=== PATIENT | female | born 1975 | race Caucasian/White ===

== ENCOUNTER 2017-02-03 00:59 | Outpatient (CLI) | payer OTHER | END 2017-02-03 02:00 | disposition home or self-care (01) | DX: O99.89 Other specified diseases and conditions complicating pregnancy, childbirth and the puerperium (principal); R10.9 Unspecified abdominal pain; Z3A.35 35 weeks gestation of pregnancy ==

== ENCOUNTER 2020-12-13 11:14 | Outpatient (CLI) | payer OTHER | END 2020-12-13 11:15 | disposition critical access hospital (66) | LOC: EMS 11:14 | PROVIDERS: ATTEND Emergency Medicine | DX: R10.9 Unspecified abdominal pain (principal); R19.7 Diarrhea, unspecified | CPT/HCPCS: A0425; A0429 ==

== ENCOUNTER 2020-12-13 11:29 | Inpatient (IN) | payer OTHER ==
[2020-12-13] MEDS ORDERED: SODIUM CHLORIDE 0.9% 1,000 ML IV STA ×2 (11:49→14:02)
[2020-12-13] MEDS ORDERED: ONDANSETRON 4 MG/2 ML VIAL IVP STA (11:49)
[2020-12-13 12:20] LABS: BASOPHILS % (AUTO) 0.8 %; LYMPHOCYTES % (AUTO) 8.2 %; MEAN CORPUSCULAR HEMOGLOBIN 32.9 pg (27.0-31.0); MEAN CORPUSCULAR HGB CONC 34.6 g/dL (32.0-36.0); MEAN CORPUSCULAR VOLUME 95.1 fL (81.0-99.0); MEAN PLATELET VOLUME 8.1 fL (7.9-10.8); MONOCYTES % (AUTO) 25.9 %; NEUTROPHILS % (AUTO) 64.3 %; PLT - PLATELET COUNT 96 10^3/uL (130-450); RED BLOOD COUNT 2.43 10^6/uL (4.20-5.40); RED CELL DISTRIBUTION WIDTH 14.9 % (12.0-15.0); WHITE BLOOD COUNT 2.4 x10^3/uL (4.8-10.8)
[2020-12-13 12:23] LABS: ABNORMAL LYMPHS % (MANUAL) 0 %
[2020-12-13 12:43] LABS: ALBUMIN 2.3 g/dL (3.2-5.5); ALBUMIN/GLOBULIN RATIO 1.4 (1.0-2.2); BILIRUBIN,TOTAL 0.4 mg/dL (0.2-1.0); CREATININE 0.5 mg/dL (0.4-1.0)
[2020-12-13 12:45] LABS: CALCIUM 5.4 mg/dL (8.5-10.3)
[2020-12-13 12:48] LABS: BAND NEUTROPHILS % (MANUAL) 38 %; DIFFERENTIAL COMMENT MANUAL DIFFERENTIAL; LYMPHOCYTES # (MANUAL) 0.2 10^3/uL (1.5-3.5); LYMPHOCYTES % (MANUAL) 10 %; MONOCYTES # (MANUAL) 0.3 10^3/uL (0.0-1.0); PLATELET ESTIMATE, MANUAL DECREASED (<130,000) (NORMAL); PLATELET MORPHOLOGY 1+ LARGE PLATELETS (NORMAL)
[2020-12-13] MEDS ORDERED: ACETAMINOPHEN 325 MG TABLET PO STA (13:41)
[2020-12-13] MEDS ORDERED: POTASSIUM CHLOR 10 MEQ/100 ML 10 MEQ/100 ML BAG IV STA (13:42)
[2020-12-13 14:26] LABS: BILIRUBIN,URINE NEGATIVE (NEGATIVE); GLUCOSE, URINE (UA) NEGATIVE (NEGATIVE); KETONES,URINE (UA) 15 mg/dL (NEGATIVE); LEUKOCYTE ESTERASE, URINE NEGATIVE (NEGATIVE); NITRITE,URINE NEGATIVE (NEGATIVE); OCCULT BLOOD,URINE TRACE-INTA (NEGATIVE); PROTEIN,URINE TRACE mg/dL (NEGATIVE); UROBILINOGEN,URINE 0.2 (NORMAL) E.U./dL (NORMAL)
[2020-12-13 14:28] LABS: CLARITY,URINE CLEAR (CLEAR); HCG UR QUAL NEGATIVE
--- NOTE | 2020-12-13 14:28 | XRAY Report ---
PROCEDURE: Chest 1 View X-Ray INDICATIONS: fever, chemo TECHNIQUE: One view of the chest was acquired. COMPARISON: None. FINDINGS: Surgical changes and devices: Surgical clips noted in the right breast and right axilla. Lungs and pleura: No pleural effusions or pneumothorax. Lungs are clear. Mediastinum: Mediastinal contours appear normal. Heart size is normal. Bones and chest wall: No suspicious bony lesions. Overlying soft tissues appear unremarkable. IMPRESSION: No acute cardiopulmonary disease. Reviewed by: Cheng Morrison MD on 12/13/2020 2:27 PM PST Approved by: Cheng Morrison MD on 12/13/2020 2:27 PM PST Station ID: [id number]
[2020-12-13] MEDS ORDERED: CEFEPIME 2 GM in SODIUM CHLORIDE 0.9% MINIBAG 100 ML IV STA (17:18)
--- NOTE | 2020-12-13 17:24 | ED Physician Documentation ---
History of Present Illness - Stated complaint Stated Complaint: DEHYDRATED - Chief complaint Chief Complaint: Abd Pain - History obtained from History obtained from: Patient, Family - Additonal information Additional information: Pt was brought to the ED with CC of diarrhea since her last chemo treatment, and now fever. PT received second dose of chemo 5 days ago for breast cancer. She has already had a R mastectomy and radiation. She states that the next day, she began to have copious diarrhea, along with nausea and vomiting. This has persisted since, and she was now found to have a fever during triage. Pt denies any other sx. No cough, SOB, or CP. No sore throat--just a dry mouth. No dysuria, but pt states her urine has seemed cloudy. No known exposures to anyone ill. Pt is a dual citizen, and has been receiving her cancer care in [facility] Review of Systems Ten Systems: 10 systems reviewed and negative Constitutional: reports: Fever, Fatigue Eyes: reports: Reviewed and negative Ears: reports: Reviewed and negative Nose: reports: Reviewed and negative. denies: Rhinorrhea / runny nose, Congestion Throat: reports: Reviewed and negative. denies: Sore throat Cardiac: reports: Reviewed and negative Respiratory: reports: Reviewed and negative. 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 - Past Surgical History Past Surgical History: Yes /OVEN TECHNICIAN: Mastectomy - Present Medications Home Medications: Ambulatory Orders Medication Instructions Recorded Confirmed No Known Home Medications 12/14/20 12/14/20 - Allergies Allergies/Adverse Reactions: Allergies Allergy/AdvReac Type Severity Reaction Status Date / Time erythromycin base Allergy Anaphylaxis Verified 12/13/20 14:45 fentanyl Allergy Anaphylaxis Verified 12/13/20 14:45 Latex, Natural Rubber AdvReac Itching Verified 12/13/20 14:45 - Social History Does the pt smoke?: No Smoking Status: Never smoker Does the pt drink ETOH?: No Substance Use and Type: CBD oil / Products PD ED PE NORMAL - Vitals Vital signs reviewed: Yes - General General: Alert and oriented X 3, Well developed/nourished, Other (Pt appears mildly chronically ill and uncomfortable. 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, No motor deficit, No sensory deficit, Normal speech - Psych Psych: Normal mood, Normal affect Results - Vitals Vitals: Vital Signs - 24 hr 12/13/20 12/13/20 12/13/20 11:36 12:00 12:30 Temperature 39.1 C H Heart Rate 130 H 124 H 115 H Respiratory 20 20 18 Rate Blood Pressure 113/66 124/87 H 120/86 H O2 Saturation 100 97 98 12/13/20 12/13/20 12/13/20 13:00 13:30 14:03 Temperature 37.7 C Heart Rate 115 H 132 H Respiratory 20 20 Rate Blood Pressure 122/80 111/75 O2 Saturation 99 100 12/13/20 12/13/20 14:30 17:00 Temperature 38.4 C H 37.7 C Heart Rate 118 H 121 H Respiratory 20 20 Rate Blood Pressure 108/77 103/68 O2 Saturation 99 99 Oxygen O2 Source Room air - Labs Labs: Laboratory Tests 12/13/20 12/13/20 12/13/20 12:11 12:11 12:11 WBC 2.4 L RBC 2.43 L Hgb 8.0 L Hct 23.1 L MCV 95.1 MCH 32.9 H MCHC 34.6 RDW 14.9 Plt Count 96 L MPV 8.1 Neut # (Auto) Not Reportable Lymph # (Auto) Not Reportable [place] # (Auto) Not Reportable Eos # (Auto) Not Reportable Baso # (Auto) Not Reportable Absolute Nucleated RBC Not Reportable Total Counted 100 Band Neuts % (Manual) 38 H Abnorm Lymph % (Manual) 0 Nucleated RBC % Not Reportable Neutrophils # (Manual) 1.8 Lymphocytes # (Manual) 0.2 L Monocytes # (Manual) 0.3 Eosinophils # (Manual) 0.0 Basophils # (Manual) 0.0 Differential Comment MANUAL DIFFERENTIAL Platelet Estimate DECREASED (<130,000) Platelet Morphology 1+ LARGE PLATELETS RBC Morph Micro Appear 1+ MICROCYTOSIS Sodium 139 Potassium 2.2 L* Chloride 112 H Carbon Dioxide 18 L Anion Gap 9.0 BUN 11 Creatinine 0.5 Estimated GFR (MDRD) 134 Glucose 89 Lactic Acid 1.3 Calcium 5.4 L* Total Bilirubin 0.4 AST 13 ALT 12 Alkaline Phosphatase 33 L Total Protein 4.0 L Albumin 2.3 L Globulin 1.7 L Albumin/Globulin Ratio 1.4 Lipase 18 L Urine Color Urine Clarity Urine pH Ur Specific [place] Urine Protein Urine Glucose (UA) Urine Ketones Urine Occult Blood Urine Nitrite Urine Bilirubin Urine Urobilinogen Ur Leukocyte Esterase Ur Microscopic Review Urine Culture Comments Urine HCG, Qual Nasal Adenovirus (PCR) Nasal B. parapertussis DNA (PCR) Nasal Coronavir 229E PCR Nasal Coronavir HKU1 PCR Nasal Coronavir NL63 PCR Nasal Coronavir OC43 PCR Nasal Enterovir/Rhinovir PCR Nasal Influenza B PCR Nasal Influenza A PCR Nasal Parainfluen 1 PCR Nasal Parainfluen 2 PCR Nasal Parainfluen 3 PCR Nasal Parainfluen 4 PCR Nasal RSV (PCR) Nasal B.pertussis DNA PCR Nasal C.pneumoniae (PCR) Kalia Human Metapneumo PCR Nasal M.pneumoniae (PCR) Nasal SARS-CoV-2 (PCR) Stl C. diff Tox B Gene 12/13/20 12/13/20 12/13/20 14:08 14:53 15:45 WBC RBC Hgb Hct MCV MCH MCHC RDW Plt Count MPV Neut # (Auto) Lymph # (Auto) [place] # (Auto) Eos # (Auto) Baso # (Auto) Absolute Nucleated RBC Total Counted Band Neuts % (Manual) Abnorm Lymph % (Manual) Nucleated RBC % Neutrophils # (Manual) Lymphocytes # (Manual) Monocytes # (Manual) Eosinophils # (Manual) Basophils # (Manual) Differential Comment Platelet Estimate Platelet Morphology RBC Morph Micro Appear Sodium Potassium Chloride Carbon Dioxide Anion Gap BUN Creatinine Estimated GFR (MDRD) Glucose Lactic Acid Calcium Total Bilirubin AST ALT Alkaline Phosphatase Total Protein Albumin Globulin Albumin/Globulin Ratio Lipase Urine Color YELLOW Urine Clarity CLEAR Urine pH 6.0 Ur Specific [place] 1.025 Urine Protein TRACE Urine Glucose (UA) NEGATIVE Urine Ketones 15 H Urine Occult Blood TRACE-INTA Urine Nitrite NEGATIVE Urine Bilirubin NEGATIVE Urine Urobilinogen 0.2 (NORMAL) Ur Leukocyte Esterase NEGATIVE Ur Microscopic Review NOT INDICATED Urine Culture Comments NOT INDICATED Urine HCG, Qual NEGATIVE Nasal Adenovirus (PCR) NOT DETECTED Nasal B. parapertussis DNA (PCR) NOT DETECTED Nasal Coronavir 229E PCR NOT DETECTED Nasal Coronavir HKU1 PCR NOT DETECTED Nasal Coronavir NL63 PCR NOT DETECTED Nasal Coronavir OC43 PCR NOT DETECTED Nasal Enterovir/Rhinovir PCR NOT DETECTED Nasal Influenza B PCR NOT DETECTED Nasal Influenza A PCR NOT DETECTED Nasal Parainfluen 1 PCR NOT DETECTED Nasal Parainfluen 2 PCR NOT DETECTED Nasal Parainfluen 3 PCR NOT DETECTED Nasal Parainfluen 4 PCR NOT DETECTED Nasal RSV (PCR) NOT DETECTED Nasal B.pertussis DNA PCR NOT DETECTED Nasal C.pneumoniae (PCR) NOT DETECTED Kalia Human Metapneumo PCR NOT DETECTED Nasal M.pneumoniae (PCR) NOT DETECTED Nasal SARS-CoV-2 (PCR) NOT DETECTED Stl C. diff Tox B Gene NEGATIVE - Rads (name of study) CT abd/pelvis Radiology: Final report received, EMP read indepedently, See rad report (enterocolitis) CXR Radiology: Final report received, EMP read indepedently, See rad report (NAD) PD MEDICAL DECISION MAKING - ED course Complexity details: reviewed results, re-evaluated patient, considered differential, d/w patient, d/w family ED course: Pt was worked up with labs, CXR, UA, viral panel, stool cx/C.diff, and CT abd pelvis. Work-up was unremarkable, except for moderate leukopenia. Lactic acid was normal. Viral panel and stool studies were pending at the time of admission. Pt was tachycardic, and treated with IV fluids, Zofran, Dilaudid, and GI cocktail, as well as Tylenol for her fever, once she could hold it down. HR improved somewhat after all of this. I spoke with her , who had spoken to pt's oncologist in [place]. Oncologist had expressed preference for admission, which is certainly indicated, given the pt's immunocompromised state and fever. I spoke with Dr. Branham, who agreed to admit the pt to his service. Departure - Departure Disposition: 66 [facility] DC/Xfer Clinical Impression: Fever greater than or equal to 39 degrees Celsius, Chemotherapy-induced diarrhea, Dehydration Condition: Serious Discharge Date/Time: 12/13/20 19:25
[2020-12-13] MEDS ORDERED: IOVERSOL 320 100 ML VIAL IVP ONE ×2 (17:44→18:39)
[2020-12-13 17:45] LABS: C. PNEUMONIAE- RESP PCR PANEL NOT DETECTED
[2020-12-13] MEDS ORDERED: HYDROmorphone 1 MG/ML CARPUJECT IVP STA (17:58)
[2020-12-13] MEDS ORDERED: GI COCKTAIL 120 ML BOTTLE PO ONE (17:58)
[2020-12-13] MEDS ORDERED: SODIUM CHLORIDE 0.9% 1,000 ML IV SCH (18:00)
--- NOTE | 2020-12-13 18:18 | CT Report ---
PROCEDURE: Abdomen/Pelvis W INDICATIONS: fever/chemo CONTRAST: IV CONTRAST: Optiray 320 ml: 100 PO CONTRAST: *NO PO CONTRAST TECHNIQUE: After the administration of nonionic IV contrast, 5 mm thick sections acquired from the diaphragms to the symphysis. 5 mm thick coronal and sagittal reformats were acquired. For radiation dose reducti on, the following was used: automated exposure control, adjustment of mA and/or kV according to yanely ent size. COMPARISON: Correlation is made with the accompanying chest radiograph, 12/13/2020 FINDINGS: Image quality: Excellent. ABDOMEN: Lung bases: Lung bases are clear. Heart size is normal. A right mammoplasty implant is partially se en. Solid organs: Liver and spleen are normal in size and enhancement. Gallbladder wall does not appear thickened. Biliary system is non dilated. Pancreas enhances normally. No adrenal nodules. Kidn eys demonstrate normal size and enhancement, without hydronephrosis. Peritoneum and bowel: Generalized wall thickening and hyperenhancement can be seen involving the dis brian small bowel. Liquid stool is seen throughout the colon. There is mild hyperenhancement with mild wall thickening seen involving the colon, particularly the distal transverse colon and the descending colon. No free air is seen. No significant free fluid can be seen. A normal appendix is incidentally noted. Nodes and vessels: No retroperitoneal or mesenteric adenopathy by size criteria. Aorta and inferior vena cava are normal in size. Miscellaneous: No ventral hernias. PELVIS: Genitourinary: Bladder wall thickness is normal. An IUD is seen. The left arm of the IUD appears to minimally protrude through the myometrium, as on series 3 image 68 and on series 6 image 23. Miscellaneous: No inguinal hernias or adenopathy. Bones: There is a sclerotic focus seen involving the left iliac bone, as on series 6 image 33 and on series 3 image 65. No vertebral body compression fractures. IMPRESSION: Abnormal distal small bowel and colon, with an imaging appearance most consistent with e nterocolitis. Please correlate with infectious and inflammatory causes. Ischemia is considered to be much less likely in this patient. An IUD is seen, with the left T-bar apparently minimally protruding through the myometrium. When clin ically appropriate, please consider gynecologic consultation. There is a sclerotic focus involving the left iliac bone. This is felt most likely to be related to a bone island. However, if there is suspicion for sclerotic metastatic disease in this patient with pr imary cancer, please consider a dedicated whole body nuclear medicine bone scan for further evaluatio n. Incidental note is made of: Right mammaplasty implant Reviewed by: Miguel Xiao MD on 12/13/2020 5:16 PM AKST Approved by: Miguel Xiao MD on 12/13/2020 5:16 PM AKST Station ID: [id number]
[2020-12-13] MEDS ORDERED: LIDOCAINE VISCOUS 2% 15 ML UDC MM ONE (19:00)
[2020-12-13] MEDS ORDERED: MAG HYDROX/AL HYDROX/SIMETH 30 ML UDC PO ONE (19:00)
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
[2020-12-13] MEDS: SODIUM CHLORIDE 0.9% 1,000 ML IV SCH (19:22)
[2020-12-13] MEDS ORDERED: CALCIUM GLUCONATE 2,000 MG in SODIUM CHLORIDE 0.9% 100ML 100 ML IV ONE (19:40)
[2020-12-13] MEDS: metroNIDAZOLE 500 MG/100 ML 500 MG/100 ML BAG IV SCH (20:07)
[2020-12-13] MEDS: ACETAMINOPHEN 325 MG TABLET PO PRN (20:38)
[2020-12-13] MEDS: CEFEPIME 2 GM in SODIUM CHLORIDE 0.9% MINIBAG 100 ML IV SCH (21:20)
[2020-12-13] MEDS: POTASSIUM CHLOR 10 MEQ/100 ML 10 MEQ/100 ML BAG IV SCH ×2 (21:46→23:38)
[2020-12-14] MEDS ORDERED: SODIUM CHLORIDE 0.9% 1,000 ML IV SCH (00:10)
[2020-12-14] MEDS: CALCIUM CARBONATE CHEW 500 MG TABLET PO SCH ×2 (01:13→10:07)
[2020-12-14] MEDS: POTASSIUM CHLOR 10 MEQ/100 ML 10 MEQ/100 ML BAG IV SCH ×3 (01:13→22:53)
[2020-12-14] MEDS: ACETAMINOPHEN 325 MG TABLET PO PRN ×4 (01:21→21:24)
[2020-12-14] MEDS: SODIUM CHLORIDE FLUSH 0.9% 10 ML SYRINGE IVP SCH ×3 (02:12→16:12)
[2020-12-14] MEDS: SODIUM CHLORIDE 0.9% 1,000 ML IV SCH ×4 (02:13→18:35)
[2020-12-14] MEDS: ONDANSETRON 4 MG/2 ML VIAL IVP PRN ×2 (02:14→16:37)
[2020-12-14] MEDS: metroNIDAZOLE 500 MG/100 ML 500 MG/100 ML BAG IV SCH ×3 (04:11→19:05)
[2020-12-14 04:34] LABS: BASOPHILS % (AUTO) 1.3 %; HGB - HEMOGLOBIN 10.3 g/dL (12.0-16.0); LYMPHOCYTES % (AUTO) 7.3 %; MEAN CORPUSCULAR HEMOGLOBIN 32.4 pg (27.0-31.0); MEAN CORPUSCULAR HGB CONC 34.3 g/dL (32.0-36.0); MEAN CORPUSCULAR VOLUME 94.3 fL (81.0-99.0); MEAN PLATELET VOLUME 8.7 fL (7.9-10.8); NEUTROPHILS % (AUTO) 76.9 %; PLT - PLATELET COUNT 148 10^3/uL (130-450); RED BLOOD COUNT 3.18 10^6/uL (4.20-5.40); RED CELL DISTRIBUTION WIDTH 15.9 % (12.0-15.0); WHITE BLOOD COUNT 3.7 x10^3/uL (4.8-10.8)
[2020-12-14 04:38] LABS: ABNORMAL LYMPHS % (MANUAL) 0 %
[2020-12-14 04:44] LABS: ALBUMIN 3.1 g/dL (3.2-5.5); ALBUMIN/GLOBULIN RATIO 1.3 (1.0-2.2); ALKALINE PHOSPHATASE 42 IU/L (42-121); ALT ALANINE AMINOTRANSFERASE 18 IU/L (10-60); AST ASPARTATE AMINOTRANSFERASE 17 IU/L (10-42); BILIRUBIN,TOTAL 0.7 mg/dL (0.2-1.0); BUN - BLOOD UREA NITROGEN 11 mg/dL (6-20); CALCIUM 8.2 mg/dL (8.5-10.3); CARBON DIOXIDE - CO2 20 mmol/L (21-32); CHLORIDE 102 mmol/L (101-111); CREATININE 0.7 mg/dL (0.4-1.0); GLUCOSE 123 mg/dL (70-100); TOTAL PROTEIN 5.5 g/dL (6.7-8.2)
[2020-12-14 04:48] LABS: VBG PH 7.468 (7.31-7.41)
[2020-12-14 05:07] LABS: BAND NEUTROPHILS % (MANUAL) 37 %; DIFFERENTIAL COMMENT MANUAL DIFFERENTIAL; LYMPHOCYTES # (MANUAL) 0.4 10^3/uL (1.5-3.5); LYMPHOCYTES % (MANUAL) 12 %; METAMYELOCYTES % (MANUAL) 1 %; MONOCYTES # (MANUAL) 0.3 10^3/uL (0.0-1.0); MYELOCYTES % (MANUAL) 1 %; PLATELET ESTIMATE, MANUAL NORMAL (130-450,000) (NORMAL); RBC MORPHOLOGY (MULTIPLE) NORMAL APPEARANCE (NORMAL)
--- NOTE | 2020-12-14 07:30 | PROVIDER PROGRESS NOTE ---
Subjective - Prog Note Date Prog Note Date: 12/14/20 Prog Note Time: 07:26 - Subjective Pt reports feeling: No change (stool is now green, 6x overnight, urgency, but not gross volume, cramping is getting worse before BM's, feels some reflux in her throat w/ not eating) Objective - Vital Signs/Intake & Output Reviewed Vital Signs: Yes Vital Signs: Vital Signs x48h Temp Pulse Resp BP Pulse Ox 12/14/20 04:08 37.1 C 100 17 102/67 97 12/13/20 23:35 37.4 C 105 H 13 110/62 96 Intake & Output: Intake & Output 12/11/20 12/12/20 12/13/20 12/14/20 23:59 23:59 23:59 23:59 Intake Total 3620.0 791.667 Balance 3620.0 791.667 - Objective General Appearance: positive: No acute distress, Other (nontoxic, but looks tired, had to get up to bathroom during exam this morning) Eyes Bilateral: positive: Normal inspection, PERRL Neck: positive: Nml inspection Respiratory: positive: Chest non-tender, No respiratory distress, Breath sounds nml Cardiovascular: positive: Regular rate & rhythm Abdomen: positive: Tenderness, Rebound. negative: Nml bowel sounds (hypoactive but present, nondistended, tender to gentle palpation LLQ, mid abd) Skin: positive: Warm, Dry, Other (no mottling) Extremities: negative: Pedal edema (palms and soles w/ thickened slightly peeling skin, no open sores (small L ball of foot ~3mm non draining scab unchanged; using stock lotion from floor) Neurologic/Psychiatric: positive: Oriented x3, Mood/affect nml - Lab Results Fish Bones: 12/14/20 04:13 12/14/20 04:13 Other Labs: Lab Results x24hrs 12/14/20 12/14/20 12/14/20 Range/Units 04:13 04:13 04:13 WBC 3.7 L (4.8-10.8) x10^3/uL RBC 3.18 L (4.20-5.40) 10^6/uL Hgb 10.3 L (12.0-16.0) g/dL Hct 30.0 L (37.0-47.0) % MCV 94.3 (81.0-99.0) fL MCH 32.4 H (27.0-31.0) pg MCHC 34.3 (32.0-36.0) g/dL RDW 15.9 H (12.0-15.0) % Plt Count 148 (130-450) 10^3/uL MPV 8.7 (7.9-10.8) fL Neut # (Auto) Not Reportable Lymph # (Auto) Not Reportable [place] # (Auto) Not Reportable Eos # (Auto) Not Reportable Baso # (Auto) Not Reportable Absolute Nucleated RBC Not Reportable Total Counted 100 Band Neuts % (Manual) 37 H (0 - 10) % Abnorm Lymph % (Manual) 0 % Metamyelocytes % 1 H ( - 0) % Myelocytes % 1 H ( - 0) % Nucleated RBC % Not Reportable Neutrophils # (Manual) 2.9 (1.5-6.6) 10^3/uL Lymphocytes # (Manual) 0.4 L (1.5-3.5) 10^3/uL Monocytes # (Manual) 0.3 (0.0-1.0) 10^3/uL Eosinophils # (Manual) 0.0 (0-0.7) 10^3/uL Basophils # (Manual) 0.0 (0-0.1) 10^3/uL Differential Comment MANUAL DIFFERENTIAL Platelet Estimate NORMAL (130-450,000) (NORMAL) Platelet Morphology (NORMAL) RBC Morph Micro Appear NORMAL APPEARANCE (NORMAL) VBG pH 7.468 H (7.31-7.41) Ionized Calcium 1.09 L YES (1.15-1.33) mmol/L Sodium 131 L (135-145) mmol/L Potassium 4.0 (3.5-5.0) mmol/L Chloride 102 (101-111) mmol/L Carbon Dioxide 20 L (21-32) mmol/L Anion Gap 9.0 (6-13) BUN 11 (6-20) mg/dL Creatinine 0.7 (0.4-1.0) mg/dL Estimated GFR (MDRD) 91 (>89) Glucose 123 H (70-100) mg/dL Lactic Acid (0.5-2.2) mmol/L Calcium 8.2 L (8.5-10.3) mg/dL Total Bilirubin 0.7 (0.2-1.0) mg/dL AST 17 (10-42) IU/L ALT 18 (10-60) IU/L Alkaline Phosphatase 42 (42-121) IU/L Total Protein 5.5 L (6.7-8.2) g/dL Albumin 3.1 L (3.2-5.5) g/dL Globulin 2.4 (2.1-4.2) g/dL Albumin/Globulin Ratio 1.3 (1.0-2.2) Lipase (22-51) U/L Urine Color Urine Clarity (CLEAR) Urine pH (5.0-7.5) PH Ur Specific [place] (1.002-1.030) Urine Protein (NEGATIVE) mg/dL Urine Glucose (UA) (NEGATIVE) mg/dL Urine Ketones (NEGATIVE) mg/dL Urine Occult Blood (NEGATIVE) Urine Nitrite (NEGATIVE) Urine Bilirubin (NEGATIVE) Urine Urobilinogen (NORMAL) E.U./dL Ur Leukocyte Esterase (NEGATIVE) Ur Microscopic Review Urine Culture Comments Urine HCG, Qual Nasal Adenovirus (PCR) Nasal B. parapertussis DNA (PCR) Nasal Coronavir 229E PCR Nasal Coronavir HKU1 PCR Nasal Coronavir NL63 PCR Nasal Coronavir OC43 PCR Nasal Enterovir/Rhinovir PCR Nasal Influenza B PCR Nasal Influenza A PCR Nasal Parainfluen 1 PCR Nasal Parainfluen 2 PCR Nasal Parainfluen 3 PCR Nasal Parainfluen 4 PCR Nasal RSV (PCR) Nasal B.pertussis DNA PCR Nasal C.pneumoniae (PCR) [place] Human Metapneumo PCR Nasal M.pneumoniae (PCR) Nasal SARS-CoV-2 (PCR) Stl C. diff Tox B Gene (NEGATIVE) 12/13/20 12/13/20 12/13/20 Range/Units 15:45 14:53 14:08 WBC (4.8-10.8) x10^3/uL RBC (4.20-5.40) 10^6/uL Hgb (12.0-16.0) g/dL Hct (37.0-47.0) % MCV (81.0-99.0) fL MCH (27.0-31.0) pg MCHC (32.0-36.0) g/dL RDW (12.0-15.0) % Plt Count (130-450) 10^3/uL MPV (7.9-10.8) fL Neut # (Auto) Lymph # (Auto) [place] # (Auto) Eos # (Auto) Baso # (Auto) Absolute Nucleated RBC Total Counted Band Neuts % (Manual) (0 - 10) % Abnorm Lymph % (Manual) % Metamyelocytes % ( - 0) % Myelocytes % ( - 0) % Nucleated RBC % Neutrophils # (Manual) (1.5-6.6) 10^3/uL Lymphocytes # (Manual) (1.5-3.5) 10^3/uL Monocytes # (Manual) (0.0-1.0) 10^3/uL Eosinophils # (Manual) (0-0.7) 10^3/uL Basophils # (Manual) (0-0.1) 10^3/uL Differential Comment Platelet Estimate (NORMAL) Platelet Morphology (NORMAL) RBC Morph Micro Appear (NORMAL) VBG pH (7.31-7.41) Ionized Calcium (1.15-1.33) mmol/L Sodium (135-145) mmol/L Potassium (3.5-5.0) mmol/L Chloride (101-111) mmol/L Carbon Dioxide (21-32) mmol/L Anion Gap (6-13) BUN (6-20) mg/dL Creatinine (0.4-1.0) mg/dL Estimated GFR (MDRD) (>89) Glucose (70-100) mg/dL Lactic Acid (0.5-2.2) mmol/L Calcium (8.5-10.3) mg/dL Total Bilirubin (0.2-1.0) mg/dL AST (10-42) IU/L ALT (10-60) IU/L Alkaline Phosphatase (42-121) IU/L Total Protein (6.7-8.2) g/dL Albumin (3.2-5.5) g/dL Globulin (2.1-4.2) g/dL Albumin/Globulin Ratio (1.0-2.2) Lipase (22-51) U/L Urine Color YELLOW Urine Clarity CLEAR (CLEAR) Urine pH 6.0 (5.0-7.5) PH Ur Specific [place] 1.025 (1.002-1.030) Urine Protein TRACE (NEGATIVE) mg/dL Urine Glucose (UA) NEGATIVE (NEGATIVE) mg/dL Urine Ketones 15 H (NEGATIVE) mg/dL Urine Occult Blood TRACE-INTA (NEGATIVE) Urine Nitrite NEGATIVE (NEGATIVE) Urine Bilirubin NEGATIVE (NEGATIVE) Urine Urobilinogen 0.2 (NORMAL) (NORMAL) E.U./dL Ur Leukocyte Esterase NEGATIVE (NEGATIVE) Ur Microscopic Review NOT INDICATED Urine Culture Comments NOT INDICATED Urine HCG, Qual NEGATIVE Nasal Adenovirus (PCR) NOT DETECTED Nasal B. parapertussis DNA (PCR) NOT DETECTED Nasal Coronavir 229E PCR NOT DETECTED Nasal Coronavir HKU1 PCR NOT DETECTED Nasal Coronavir NL63 PCR NOT DETECTED Nasal Coronavir OC43 PCR NOT DETECTED Nasal Enterovir/Rhinovir PCR NOT DETECTED Nasal Influenza B PCR NOT DETECTED Nasal Influenza A PCR NOT DETECTED Nasal Parainfluen 1 PCR NOT DETECTED Nasal Parainfluen 2 PCR NOT DETECTED Nasal Parainfluen 3 PCR NOT DETECTED Nasal Parainfluen 4 PCR NOT DETECTED Nasal RSV (PCR) NOT DETECTED Nasal B.pertussis DNA PCR NOT DETECTED Nasal C.pneumoniae (PCR) NOT DETECTED [place] Human Metapneumo PCR NOT DETECTED Nasal M.pneumoniae (PCR) NOT DETECTED Nasal SARS-CoV-2 (PCR) NOT DETECTED Stl C. diff Tox B Gene NEGATIVE (NEGATIVE) 12/13/20 12/13/20 12/13/20 Range/Units 12:11 12:11 12:11 WBC 2.4 L (4.8-10.8) x10^3/uL RBC 2.43 L (4.20-5.40) 10^6/uL Hgb 8.0 L (12.0-16.0) g/dL Hct 23.1 L (37.0-47.0) % MCV 95.1 (81.0-99.0) fL MCH 32.9 H (27.0-31.0) pg MCHC 34.6 (32.0-36.0) g/dL RDW 14.9 (12.0-15.0) % Plt Count 96 L (130-450) 10^3/uL MPV 8.1 (7.9-10.8) fL Neut # (Auto) Not Reportable Lymph # (Auto) Not Reportable [place] # (Auto) Not Reportable Eos # (Auto) Not Reportable Baso # (Auto) Not Reportable Absolute Nucleated RBC Not Reportable Total Counted 100 Band Neuts % (Manual) 38 H (0 - 10) % Abnorm Lymph % (Manual) 0 % Metamyelocytes % ( - 0) % Myelocytes % ( - 0) % Nucleated RBC % Not Reportable Neutrophils # (Manual) 1.8 (1.5-6.6) 10^3/uL Lymphocytes # (Manual) 0.2 L (1.5-3.5) 10^3/uL Monocytes # (Manual) 0.3 (0.0-1.0) 10^3/uL Eosinophils # (Manual) 0.0 (0-0.7) 10^3/uL Basophils # (Manual) 0.0 (0-0.1) 10^3/uL Differential Comment MANUAL DIFFERENTIAL Platelet Estimate DECREASED (<130,000) (NORMAL) Platelet Morphology 1+ LARGE PLATELETS (NORMAL) RBC Morph Micro Appear 1+ MICROCYTOSIS (NORMAL) VBG pH (7.31-7.41) Ionized Calcium (1.15-1.33) mmol/L Sodium 139 (135-145) mmol/L Potassium 2.2 L* (3.5-5.0) mmol/L Chloride 112 H (101-111) mmol/L Carbon Dioxide 18 L (21-32) mmol/L Anion Gap 9.0 (6-13) BUN 11 (6-20) mg/dL Creatinine 0.5 (0.4-1.0) mg/dL Estimated GFR (MDRD) 134 (>89) Glucose 89 (70-100) mg/dL Lactic Acid 1.3 (0.5-2.2) mmol/L Calcium 5.4 L* (8.5-10.3) mg/dL Total Bilirubin 0.4 (0.2-1.0) mg/dL AST 13 (10-42) IU/L ALT 12 (10-60) IU/L Alkaline Phosphatase 33 L (42-121) IU/L Total Protein 4.0 L (6.7-8.2) g/dL Albumin 2.3 L (3.2-5.5) g/dL Globulin 1.7 L (2.1-4.2) g/dL Albumin/Globulin Ratio 1.4 (1.0-2.2) Lipase 18 L (22-51) U/L Urine Color Urine Clarity (CLEAR) Urine pH (5.0-7.5) PH Ur Specific [place] (1.002-1.030) Urine Protein (NEGATIVE) mg/dL Urine Glucose (UA) (NEGATIVE) mg/dL Urine Ketones (NEGATIVE) mg/dL Urine Occult Blood (NEGATIVE) Urine Nitrite (NEGATIVE) Urine Bilirubin (NEGATIVE) Urine Urobilinogen (NORMAL) E.U./dL Ur Leukocyte Esterase (NEGATIVE) Ur Microscopic Review Urine Culture Comments Urine HCG, Qual Nasal Adenovirus (PCR) Nasal B. parapertussis DNA (PCR) Nasal Coronavir 229E PCR Nasal Coronavir HKU1 PCR Nasal Coronavir NL63 PCR Nasal Coronavir OC43 PCR Nasal Enterovir/Rhinovir PCR Nasal Influenza B PCR Nasal Influenza A PCR Nasal Parainfluen 1 PCR Nasal Parainfluen 2 PCR Nasal Parainfluen 3 PCR Nasal Parainfluen 4 PCR Nasal RSV (PCR) Nasal B.pertussis DNA PCR Nasal C.pneumoniae (PCR) [place] Human Metapneumo PCR Nasal M.pneumoniae (PCR) Nasal SARS-CoV-2 (PCR) Stl C. diff Tox B Gene (NEGATIVE) - Diagnostic Imaging Diagnostic Imaging Results: positive: Final report reviewed Diagnostic Imaging Comments: CT abdomen from 12/13: Abnormal distal smallbowel and colon, most c/w enterocolitis, unlikely ischemic cause in this pt per radiologist read Detail; generalized wall thickening and hyperenhancement can be involving distal small bowel , liquid stool throught colon. Mild hyperenhancement w/ mild wall thickening seen in coong forrest distal tansverse and descending. No free air Sepsis Event Note (H) - Evaluation Current Stage of Sepsis: Sepsis Possible source of Sepsis: positive: GI tract/intra-abdominal Assessment/Plan - Problem List (1) Sepsis Impression: (1) Sepsis Conclusion/Plan: tachycardia to 130's on admit w/ fever 38% bands, enterocolitis on CT (ileocecal, transverse and descending colon (lactate not over 2 on presentation) After 4L IVF HR improved to ~ 100, SBP ~ 100, nontoxic appearing IVF rate was reduced to 100 last pm, after 2L in ED and 1L at 250 Hr still ~ 100 (otherwise young healthy woman) will increase to 150, x 1 L, then 125 til HR ~ 80's Still significant bandemia, (37% blood cx no report stool cultures (sendout) pending, Cdif NEG continue cefepime and flagyl 2) enterocolitis related to chemo, infectious vs inflammatory from chemo (but w/fever treating as infectous) immunocompromised, but not neutropenic, ANC well over 500 Day 2 Cefepime /Flagyl awaiting stool cultures w/ Cdif negative will start conservative immodium surgical consult , so aware of patient if any significant worsening (d/w'd Dr Salomon) discussed w/ Dr Keri Thakur oncology [phone] VTE prophylaxis ; lovenox 40/d (2) Chemotherapy-induced diarrhea Conclusion/Plan: well known complication of capecitabine and had w/ first cycle BUT now with, fever enterocolitis on CT, 37% bands Day 2 Cefepime, flagyl Cdif neg as above stool pathogens pending adding bulking agent for now Contacted her oncologist iDr Keri Thakur [phone] if there are specific recommendations (per literature, 1 study of bid 40 cholestyramine, octreotide (but older study) Per Dr Thakur ; if no response to immodium, can consider octreotide 100 mcg tid sq and can increase (need to double chek dose) Will start conservative immodium tid dicycomine trial for cramping (pt reports very sensitive to opioids, didnt like effectof 2 mg morphine yesterday, leery about opiate,; just took tylenol, will consider tramadol -IV famotidine for c/o reflux -pt wants to stay clears for now Nutrition consult (at baseline is well nourished; poor PO only since this week) Addendum re: famotidine;still c/o reflux, notes shes on otc ppi at home. Stop H2B, start Protonix, also can increase CaCo3/tums; "eats lots of tums" Per pharmacy; max 8 gram/ day (3) Intravascular volume depletion Conclusion/Plan: marked/ due to GI losses, poor po, involuntary loss; fever continue aggressive volume repletion as above and continuing today strict I/O, measure stools (werent measured overnight) 4) Pancytopenia labs today post volume resuscitation dont quite make sense H/H INCREASED post 4L, plts increased (may be reactive thrombocytosis), WBC 2.4> 3.7 recheck in am (4) Metabolic acidosis with normal anion gap and bicarbonate losses Conclusion/Plan: related to diarrhea slowly improving bicarb 18>20 (5) Hypocalcemia ? asymptomatic 5.4 on admit, (w / albumin 4.0) got one dose 2g ca gluconate 8.2 today (?) ? spurious yesterday will recheck in am, no symptoms suggestive of significant hypocalcemia will check mag,>> 1.9 phos>> 2.2 w/ several days GI volume loss 6) hand /foot syndrome post chemo add emolient (eucerin) prn
[2020-12-14] MEDS ORDERED: PSYLLIUM PACKET PO SCH (08:00)
[2020-12-14 09:21] LABS: MAGNESIUM 1.9 mg/dL (1.7-2.8); PHOSPHORUS 2.2 mg/dL (2.5-4.6)
[2020-12-14] MEDS: ENOXAPARIN 40 MG/0.4 ML SYRINGE SUBQ SCH (10:07)
[2020-12-14] MEDS: LOPERAMIDE 2 MG CAPSULE PO SCH ×2 (10:07→13:05)
[2020-12-14] MEDS: PSYLLIUM PACKET PO SCH ×2 (10:09→21:24)
[2020-12-14] MEDS: CEFEPIME 2 GM in SODIUM CHLORIDE 0.9% MINIBAG 100 ML IV SCH ×2 (10:10→21:24)
--- NOTE | 2020-12-14 10:40 | PHARMACY PROGRESS NOTE ---
- Best Possible Medication History Admit Date and Time: 12/13/20 1726 Processed by: Pharmacy Medication History completed: Yes Patient Interview: Completed Secondary Source(s): Physician records, Pharmacy records, Insurance records (PATIENT INTERVIEWED BY PSYCHOMETRIC EXAMINER. PATIENT REPORTS SHE DOES NOT TAKE HOME MEDICATIONS, RECEIVING CHEMO OUT PATIENT ) As the person ultimately responsible for medication therapy, providers are able to order a medication from an existing home medication list in [facility] via the "Reconcile Routine" prior to Confirmation of that medication by direct support specialist. Such practice is discouraged except when the physician, in their clinical judgment, deems that a medical need exists for a medication without regard to previous use.
[2020-12-14] MEDS ORDERED: EMOLLIENT CREAM 57 GM TUBE TOP PRN (11:00)
[2020-12-14] MEDS: DICYCLOMINE 10 MG CAPSULE PO SCH ×2 (11:25→21:24)
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
[2020-12-14] MEDS: LOPERAMIDE 2 MG CAPSULE PO PRN ×2 (16:29→19:06)
[2020-12-14] MEDS: SODIUM CHLORIDE FLUSH 0.9% 10 ML SYRINGE IVP PRN (16:37)
[2020-12-14] MEDS ORDERED: CALCIUM CARBONATE CHEW 500 MG TABLET PO PRN (18:45)
[2020-12-14] MEDS ORDERED: PANTOPRAZOLE 40 MG TABLET PO SCH (19:00)
[2020-12-14] MEDS: CALCIUM CARBONATE CHEW 500 MG TABLET PO PRN (19:06)
[2020-12-14] MEDS ORDERED: FAMOTIDINE 20 MG/2 ML VIAL IVP SCH (21:00)
[2020-12-14] MEDS: FAMOTIDINE 20 MG TABLET PO SCH (21:28)
[2020-12-15] MEDS: POTASSIUM CHLOR 10 MEQ/100 ML 10 MEQ/100 ML BAG IV SCH ×3 (00:24→02:51)
[2020-12-15] MEDS: SODIUM CHLORIDE FLUSH 0.9% 10 ML SYRINGE IVP SCH ×3 (00:59→16:56)
[2020-12-15] MEDS: ONDANSETRON 4 MG/2 ML VIAL IVP PRN ×3 (01:30→19:52)
[2020-12-15] MEDS: SODIUM CHLORIDE 0.9% 1,000 ML IV SCH (02:51)
[2020-12-15] MEDS: metroNIDAZOLE 500 MG/100 ML 500 MG/100 ML BAG IV SCH (04:11)
[2020-12-15] MEDS: DICYCLOMINE 10 MG CAPSULE PO SCH ×3 (06:21→22:10)
[2020-12-15] MEDS: NS W/20 MEQ KCL 1,000 ML IV SCH ×2 (06:44→19:22)
[2020-12-15] MEDS ORDERED: traMADol 50 MG TABLET PO PRN (07:13)
[2020-12-15 07:52] LABS: BASOPHILS % (AUTO) 1.6 %; EOSINOPHILS % (AUTO) 5.2 %; HGB - HEMOGLOBIN 9.2 g/dL (12.0-16.0); LYMPHOCYTES % (AUTO) 18.1 %; MEAN CORPUSCULAR HGB CONC 35.2 g/dL (32.0-36.0); MEAN CORPUSCULAR VOLUME 93.5 fL (81.0-99.0); MEAN PLATELET VOLUME 8.9 fL (7.9-10.8); MONOCYTES % (AUTO) 37.1 %; NEUTROPHILS % (AUTO) 37.4 %; PLT - PLATELET COUNT 144 10^3/uL (130-450); RED BLOOD COUNT 2.79 10^6/uL (4.20-5.40); RED CELL DISTRIBUTION WIDTH 16.3 % (12.0-15.0); WHITE BLOOD COUNT 3.1 x10^3/uL (4.8-10.8)
[2020-12-15 07:55] LABS: ABNORMAL LYMPHS % (MANUAL) 0 %
[2020-12-15 07:58] LABS: ALBUMIN 2.9 g/dL (3.2-5.5); ALBUMIN/GLOBULIN RATIO 1.5 (1.0-2.2); ALKALINE PHOSPHATASE 36 IU/L (42-121); ALT ALANINE AMINOTRANSFERASE 15 IU/L (10-60); AST ASPARTATE AMINOTRANSFERASE 12 IU/L (10-42); BILIRUBIN,TOTAL 0.7 mg/dL (0.2-1.0); BUN - BLOOD UREA NITROGEN 9 mg/dL (6-20); CALCIUM 7.9 mg/dL (8.5-10.3); CARBON DIOXIDE - CO2 18 mmol/L (21-32); CHLORIDE 109 mmol/L (101-111); CREATININE 0.8 mg/dL (0.4-1.0); GLUCOSE 107 mg/dL (70-100); TOTAL PROTEIN 4.8 g/dL (6.7-8.2)
--- NOTE | 2020-12-15 08:11 | PROVIDER PROGRESS NOTE ---
Subjective - Prog Note Date Prog Note Date: 12/15/20 Prog Note Time: 08:06 - Subjective Subjective: reports hx of imodium giving her heart burn, not taking, diarrhea the slightest bit less watery, diffuse abdominal tenderness, feels gassy (takes gas-x "all the time" and reminded her yesterday that she takes both otc PPI and pepcid at home (along with often taking tums). Does not want any opiates, andre did help cramping somewhat yesterda, interested in trying low dose tramadol (reports v. sensitive to any medications). She was able to sit on toilet JUST to urinate w/o also having diarrhea at the same time which is improved. Palm/sole e pidermal thickening peeling has hands feeling "clumsy" , reports the eucerin is helping. feels "crabby" seen again early afternoon, feeling a little better. loose BM at 7am 300 cc, and ~200 cc greenish stool ~ 2p, Is taking immodium now and lomotil. Wrinkles nose at the metamucil but indicates she'll try to take it . Abdominal tenderness improved w/ light palpation (till present but less tender) Current Medications - Current Medications Current Medications: Active Medications Acetaminophen (Acetaminophen 325 Mg Tablet) 650 mg PO Q4HR PRN PRN Reason: Pain or Fever > 38C (100.4F) Last Admin: 12/14/20 21:24 Dose: 650 mg Documented by: Calcium Carbonate/Glycine (Calcium Carbonate Chew 500 Mg Tablet) 500 mg PO Q2H PRN PRN Reason: Heartburn Last Admin: 12/14/20 19:06 Dose: 500 mg Documented by: Dicyclomine HCl (Dicyclomine 10 Mg Capsule) 10 mg PO TID [facility] Last Admin: 12/15/20 06:21 Dose: 10 mg Documented by: Diphenoxylate HCl/Atropine (Diphenox/Atropine 2.5/0.025 Mg Tablet) 1 tab PO TID [facility] Enoxaparin Sodium (Enoxaparin 40 Mg/0.4 Ml Syringe) 40 mg SUBQ DAILY [facility] Last Admin: 12/14/20 10:07 Dose: 40 mg Documented by: Famotidine (Famotidine 20 Mg Tablet) 20 mg PO BID [facility] Last Admin: 12/14/20 21:28 Dose: 20 mg Documented by: Cefepime HCl 2 gm/ Sodium (Chloride) 100 mls @ 200 mls/hr IV BID [facility] Last Infusion: 12/14/20 21:54 Dose: Infused Documented by: Metronidazole (Flagyl 500 Mg/100 Ml) 500 mg in 100 mls @ 100 mls/hr IV Q8H [facility] Last Infusion: 12/15/20 05:11 Dose: Infused Documented by: Potassium Chloride/Sodium Chloride (Normal Saline 0.9% W/20 Meq Kcl) 1,000 mls @ 100 mls/hr IV .Q10H [facility] Last Admin: 12/15/20 06:44 Dose: 100 mls/hr Documented by: Loperamide HCl (Loperamide 2 Mg Capsule) 2 mg PO Q2H PRN PRN Reason: Diarrhea Last Admin: 12/14/20 19:06 Dose: 2 mg Documented by: Multi-Ingredient Ointment (Emollient Cream 57 Gm Tube) 1 applic TOP BID PRN PRN Reason: Dry Skin Ondansetron HCl (Ondansetron 4 Mg/2 Ml Vial) 4 mg IVP Q4HR PRN PRN Reason: Nausea / Vomiting Last Admin: 12/15/20 01:30 Dose: 4 mg Documented by: Psyllium Hydrophilic Mucilloid (Psyllium Packet) 1 packet PO BID [facility] Last Admin: 12/14/20 21:24 Dose: Not Given Documented by: Simethicone (Simethicone Chew 80 Mg Tablet) 80 mg PO TID PRN PRN Reason: Gas Sodium Chloride (Sodium Chloride Flush 0.9% 10 Ml Syringe) 10 ml IVP PRN PRN PRN Reason: NEEDED PER PROVIDER ORDERS Last Admin: 12/14/20 16:37 Dose: 10 ml Documented by: Sodium Chloride (Sodium Chloride Flush 0.9% 10 Ml Syringe) 10 ml IVP 0100,0900,1700 [facility] Last Admin: 12/15/20 00:59 Dose: Not Given Documented by: Tramadol HCl (Tramadol 50 Mg Tablet) 25 mg PO Q4HR PRN PRN Reason: PAIN No Known Home Medications 12/14/20 Objective - Vital Signs/Intake & Output Reviewed Vital Signs: Yes Vital Signs: Vital Signs x48h Temp Pulse Resp BP Pulse Ox 12/15/20 05:00 36.6 C 80 13 100/66 98 12/15/20 00:26 36.8 C 85 14 108/65 97 Intake & Output: Intake & Output 12/12/20 12/13/20 12/14/20 12/15/20 23:59 23:59 23:59 23:59 Intake Total 3620.0 3290.000 2475.417 Output Total 1050 355 Balance 3620.0 2240.000 2120.417 - Objective General Appearance: positive: Other (sitting up in bed, nontoxic, but tired, tried some crackers , eating popsicle) Eyes Bilateral: positive: Normal inspection Respiratory: positive: Chest non-tender, No respiratory distress, Breath sounds nml Cardiovascular: positive: Regular rate & rhythm (HR ~ 80), No murmur Abdomen: positive: Other (very slightly distended but soft, + BS, diffusely tender, no RBT, no guarding) Skin: positive: Warm, Dry, Other (skin thickening soles, palms, slight peeling, no weeping, only open area is scab under 2nd MTP Left. no surrounding erythema, drainage, able to ambulate.) Extremities: negative: Pedal edema - Lab Results Fish Bones: 12/15/20 07:40 12/15/20 07:40 Other Labs: Lab Results x24hrs 12/15/20 12/15/20 12/14/20 Range/Units 07:40 07:40 21:35 WBC 3.1 L (4.8-10.8) x10^3/uL RBC 2.79 L (4.20-5.40) 10^6/uL Hgb 9.2 L (12.0-16.0) g/dL Hct 26.1 L (37.0-47.0) % MCV 93.5 (81.0-99.0) fL MCH 33.0 H (27.0-31.0) pg MCHC 35.2 (32.0-36.0) g/dL RDW 16.3 H (12.0-15.0) % Plt Count 144 (130-450) 10^3/uL MPV 8.9 (7.9-10.8) fL Sodium 137 (135-145) mmol/L Potassium 3.4 L 3.1 L (3.5-5.0) mmol/L Chloride 109 (101-111) mmol/L Carbon Dioxide 18 L (21-32) mmol/L Anion Gap 10.0 (6-13) BUN 9 (6-20) mg/dL Creatinine 0.8 (0.4-1.0) mg/dL Estimated GFR (MDRD) 78 L (>89) Glucose 107 H (70-100) mg/dL Calcium 7.9 L (8.5-10.3) mg/dL Phosphorus (2.5-4.6) mg/dL Magnesium (1.7-2.8) mg/dL Total Bilirubin 0.7 (0.2-1.0) mg/dL AST 12 (10-42) IU/L ALT 15 (10-60) IU/L Alkaline Phosphatase 36 L (42-121) IU/L Total Protein 4.8 L (6.7-8.2) g/dL Albumin 2.9 L (3.2-5.5) g/dL Globulin 1.9 L (2.1-4.2) g/dL Albumin/Globulin Ratio 1.5 (1.0-2.2) 12/14/20 Range/Units 04:13 WBC (4.8-10.8) x10^3/uL RBC (4.20-5.40) 10^6/uL Hgb (12.0-16.0) g/dL Hct (37.0-47.0) % MCV (81.0-99.0) fL MCH (27.0-31.0) pg MCHC (32.0-36.0) g/dL RDW (12.0-15.0) % Plt Count (130-450) 10^3/uL MPV (7.9-10.8) fL Sodium (135-145) mmol/L Potassium (3.5-5.0) mmol/L Chloride (101-111) mmol/L Carbon Dioxide (21-32) mmol/L Anion Gap (6-13) BUN (6-20) mg/dL Creatinine (0.4-1.0) mg/dL Estimated GFR (MDRD) (>89) Glucose (70-100) mg/dL Calcium (8.5-10.3) mg/dL Phosphorus 2.2 L (2.5-4.6) mg/dL Magnesium 1.9 (1.7-2.8) mg/dL Total Bilirubin (0.2-1.0) mg/dL AST (10-42) IU/L ALT (10-60) IU/L Alkaline Phosphatase (42-121) IU/L Total Protein (6.7-8.2) g/dL Albumin (3.2-5.5) g/dL Globulin (2.1-4.2) g/dL Albumin/Globulin Ratio (1.0-2.2) Sepsis Event Note (H) - Evaluation Current Stage of Sepsis: Sepsis Possible source of Sepsis: positive: GI tract/intra-abdominal - Sepsis Criteria Sepsis Criteria: Recorded Temperature greater than 38.3C or Less than 36C, Recorded Heart Rate greater than 90 bpm, WBC count greater than 10% bands, WBC c ount greater than 12,000 or less than 4000 Assessment/Plan - Problem List (1) Sepsis Impression: (1) Sepsis Conclusion/Plan: Resolved; bandemia markedly declined (38%>37% > 6% today) afebrile yesterday, tachycardia resolved s/ HR ~ 80, (still needed volume resuscitation early 12/14) continuing NS at reduced rate w/ K for GI lossses blood cultures negative , 12/14 tachycardia to 130's on admit w/ fever 38% bands, enterocolitis on CT (ileocecal, transverse and descending colon (lactate not over 2 on presentation) After 4L IVF HR improved to ~ 100, SBP ~ 100, nontoxic appearing IVF rate was reduced to 100 last pm, after 2L in ED and 1L at 250 Hr still ~ 100 (otherwise young healthy woman) will increase to 150, x 1 L, then 125 til HR ~ 80's Still significant bandemia, (37% blood cx no report stool cultures (sendout) pending, Cdif NEG Day 3 Cefepime/Flagyl; but will change to unasyn in case flagyl contributing to her GI symptoms see #3 2) enterocolitis and chemotherapy- induced diarrhea Severe diarrhea known S/E of capecitabine, but treating enterocolitis (ileocecal, distal transverse colon, descending on CT) as infectious given sepsis, bandemia on admit/immunocompromised, but not neutropenic Non acute abdomen/ diffuse tenderness c/w inflammation (and much improved bandemia as per #1) Change Cefepime/Flagyl to Unasyn (day 3 ABX) due to ? GI side effects from flagyl cdif neg Stool cultures still pending but w/ improved bandemia, ABX, continuing w/ antidiarrheals for watery stool Not tolerating imodium w/ subjective>>heartburn; Start lomotil (Octreotide is option 100mcg tid sq, but since barely took imodium yesterday eval lomotil) Continue bulking agent / metamucil not agreeing w/ her yesterday but hopefully can resume today prn dicyclomine for cramping (reported+ relief yesterday) adding simethicone trial for c/o gassiness trial of tramadol (wanted just tylenol yesterday, reports high sensitivity to opiate analgesic/leery of many analgesics Advancing diet / as tolerated (and she today likes idea of some solid) Nutrition following, José added zinc Appreciate Dr. Stinson consult Dr Keri Thakur /[place] [facility] [phone] d/w'd her 12/14, 12/15 VTE prophylaxis ; lovenox 40/d 3) GAstroesophageal Reflux H2B AND PPI (reports takes at home, and "eats like candy" tums at home and Gas-x Changing cefepime/flagyl to unasyn in case flagyl>>adding to GI symptoms taking PO at least a bit today (4) Intravascular volume depletion Conclusion/Plan: due to GI losses, hemodynamically stable now ~650 stool 12/14, 335 cc since Midnight I/O ~ 2L + yesterday (12/13 I/O incomplete) reduced NS to 100cc/hr w/ K, continue i/o, antidiarrheals and adjust rate as needed 5) Pancytopenia improved mild anemia (and hemodilute) no signs of bleeding, Plts stable/ improved 96K??148K>>144K) WBC low/stable post chemo 2.4> 3.7> 3.1 ; ANC a little over 1200 ( 1100 neutrophils + 6% bands) (6) Metabolic acidosis with normal anion gap and bicarbonate losses Conclusion/Plan: related to diarrhea stable/ continue manage diarrhea as above (7) Electrolyte imbalance, Mild hypokalemia, hyponatremia, hypophosphatemia Hypocalcemia r/t GI losses Hypocalcemia resolved (7.9 today corrects w/ Alb 2.9) ? spurious CA value on admit? 5.4 w/ alb 2.3; did get 2g Ca gluconate Mild hypoNa (131 yesterday ; resolved 137 today Mild hypokalemia K 4.0 12/14 (3.1 2 pm; 3.4 after 40 meq IV) Adding K to IVF mild hypophosphatemia; patient agreeable to trying neutraphos in juice to try to spare IV, otherwise, Kphos Mag ok 8) hand /foot syndrome post chemo eucerin prn 9) Left iliac sclerotic lesion incidentally noted on CT abd/pelvis; no c orresponding pain, did not communicate this to patient let Dr Thakur know on d/c incase need additonal imaging ; e.g. PET Also outpatient [employer] f/u re: IUD placement ? on CT thru [facility]
[2020-12-15 08:25] LABS: VBG PH 7.411 (7.31-7.41)
[2020-12-15 08:31] LABS: BAND NEUTROPHILS % (MANUAL) 6 %; EOSINOPHILS # (MANUAL) 0.2 10^3/uL (0-0.7); LYMPHOCYTES # (MANUAL) 0.5 10^3/uL (1.5-3.5); LYMPHOCYTES % (MANUAL) 16 %; MONOCYTES # (MANUAL) 1.3 10^3/uL (0.0-1.0)
[2020-12-15 08:32] LABS: DIFFERENTIAL COMMENT MANUAL DIFFERENTIAL; PLATELET ESTIMATE, MANUAL NORMAL (130-450,000) (NORMAL); PLATELET MORPHOLOGY NORMAL APPEARANCE (NORMAL)
[2020-12-15] MEDS: CALCIUM CARBONATE CHEW 500 MG TABLET PO PRN (08:33)
[2020-12-15] MEDS: FAMOTIDINE 20 MG TABLET PO SCH ×2 (08:35→20:06)
[2020-12-15] MEDS: LOPERAMIDE 2 MG CAPSULE PO PRN (08:35)
[2020-12-15] MEDS: DIPHENOX/ATROPINE 2.5/0.025 MG TABLET PO SCH ×3 (08:35→22:11)
[2020-12-15] MEDS: CEFEPIME 2 GM in SODIUM CHLORIDE 0.9% MINIBAG 100 ML IV SCH (08:36)
[2020-12-15] MEDS: ENOXAPARIN 40 MG/0.4 ML SYRINGE SUBQ SCH (08:38)
[2020-12-15] MEDS: PSYLLIUM PACKET PO SCH ×2 (09:08→19:39)
[2020-12-15] MEDS: ZINC SULFATE 220 MG CAPSULE PO SCH (11:08)
[2020-12-15] MEDS: PANTOPRAZOLE 40 MG TABLET PO SCH (11:09)
[2020-12-15] MEDS: NEUTRA-PHOS 250 MG TABLET PO SCH ×2 (13:24→22:10)
[2020-12-15] MEDS: AMPICILLIN/SULBACTAM 3 GM in SODIUM CHLORIDE 0.9% MINIBAG 100 ML IV SCH ×2 (13:25→19:51)
[2020-12-15] MEDS: traMADol 50 MG TABLET PO PRN ×2 (15:11→19:51)
[2020-12-15] MEDS: SIMETHICONE CHEW 80 MG TABLET PO PRN (16:08)
[2020-12-15] MEDS ORDERED: diphenhydrAMINE 25 MG CAPSULE PO PRN (21:33)
[2020-12-16] MEDS: traMADol 50 MG TABLET PO PRN (00:05)
[2020-12-16] MEDS: SODIUM CHLORIDE FLUSH 0.9% 10 ML SYRINGE IVP SCH ×3 (00:05→18:07)
[2020-12-16] MEDS: ONDANSETRON 4 MG/2 ML VIAL IVP PRN ×4 (00:05→21:54)
[2020-12-16] MEDS: AMPICILLIN/SULBACTAM 3 GM in SODIUM CHLORIDE 0.9% MINIBAG 100 ML IV SCH ×4 (01:57→21:38)
[2020-12-16] MEDS: DICYCLOMINE 10 MG CAPSULE PO SCH ×3 (06:28→21:25)
[2020-12-16] MEDS: DIPHENOX/ATROPINE 2.5/0.025 MG TABLET PO SCH ×3 (06:28→21:25)
[2020-12-16 07:10] LABS: HGB - HEMOGLOBIN 8.9 g/dL (12.0-16.0); MEAN CORPUSCULAR HEMOGLOBIN 33.1 pg (27.0-31.0); MEAN CORPUSCULAR VOLUME 94.4 fL (81.0-99.0); MEAN PLATELET VOLUME 8.8 fL (7.9-10.8); RED BLOOD COUNT 2.69 10^6/uL (4.20-5.40); RED CELL DISTRIBUTION WIDTH 16.8 % (12.0-15.0); WHITE BLOOD COUNT 3.9 x10^3/uL (4.8-10.8)
[2020-12-16 07:35] LABS: CALCIUM 7.5 mg/dL (8.5-10.3); CREATININE 0.8 mg/dL (0.4-1.0)
[2020-12-16] MEDS ORDERED: POTASSIUM CHLORIDE 20 MEQ TABLET PO ONE (07:45)
--- NOTE | 2020-12-16 07:50 | PROVIDER PROGRESS NOTE ---
Assessment/Plan - Problem List (1) Sepsis Assessment/Plan: Improved/Resolved. Likely GI source Patient currently on Unasyn. Cefepime and Flagyl were discontinued. WBC today is 3.9. Bandemia has markedly declined. Blood cultures are no growth to date. (2) Enterocolitis Assessment/Plan: This is thought to be due to capecitabine. However patient is also being covered for a potential infectious cause weight Unasyn. Patient did not tolerate Imodium due to heartburn. Lomotil started yesterday. If no improvement will consider octreotide tomorrow. Patient encouraged to continue taking Metamucil. Bentyl ordered for cramping as needed We will advance diet as tolerated. General surgery also following. If no improvement by Friday we will reach out to the patient's oncologist in [facility] Dr. Keri Raygoza. (3) GERD (gastroesophageal reflux disease) Assessment/Plan: On Protonix and Pepcid Tums also ordered (4) Pancytopenia Assessment/Plan: Improved/improving. We will continue to monitor. (5) Metabolic acidosis with normal anion gap and bicarbonate losses Assessment/Plan: We will continue IV hydration for patient's hyponatremia. Her sodium level today was 132. We will replace patient's potassium weight IV and p.o. potassium chloride. Her potassium today was 2.8. Also giving patient 2 g of magnesium sulfate. We will continue to monitor and replace electrolytes accordingly. (6) Intravascular volume depletion Assessment/Plan: Due to diarrhea and inadequate p.o. intake. We will continue IV hydration. Overall there is improvement. Patient's daily net balance is positive Patient's vitals are stable. - Current Meds Current Meds: Current Medications Generic Name Dose Route Start Last Admin Trade Name Freq PRN Reason Stop Dose Admin Acetaminophen 650 mg 12/13/20 20:02 12/14/20 21:24 Acetaminophen 325 Mg Tablet PO 650 mg Q4HR PRN Administration Pain or Fever > 38C (100.4F) Calcium Carbonate/Glycine 500 mg 12/14/20 18:52 12/15/20 08:33 Calcium Carbonate Chew 500 Mg Tablet PO 1,000 mg Q2H PRN Administration Heartburn Dicyclomine HCl 10 mg 12/14/20 14:00 12/16/20 06:28 Dicyclomine 10 Mg Capsule PO 10 mg TID [facility] Administration Diphenoxylate HCl/Atropine 1 tab 02/12/21 08:00 12/16/20 06:28 Diphenox/Atropine 2.5/0.025 Mg Tablet PO 1 tab TID [facility] Administration Enoxaparin Sodium 40 mg 12/14/20 09:00 12/15/20 08:38 Enoxaparin 40 Mg/0.4 Ml Syringe SUBQ 40 mg DAILY [facility] Administration Famotidine 20 mg 12/14/20 21:17 12/15/20 20:06 Famotidine 20 Mg Tablet PO 20 mg BID [facility] Administration Potassium Chloride/Sodium Chloride 1,000 mls @ 100 mls/hr 12/15/20 07:00 12/15/20 19:22 Normal Saline 0.9% W/20 Meq Kcl IV 100 mls/hr .Q10H [facility] Administration Ampicillin Sodium/Sulbactam 100 mls @ 200 mls/hr 12/15/20 14:00 12/16/20 01:57 Sodium 3 gm/ Sodium Chloride IV 2 mls/hr Q6H [facility] Administration Loperamide HCl 2 mg 12/14/20 14:34 12/15/20 08:35 Loperamide 2 Mg Capsule PO 2 mg Q2H PRN Administration Diarrhea Ondansetron HCl 4 mg 12/14/20 00:09 12/16/20 00:05 Ondansetron 4 Mg/2 Ml Vial IVP 4 mg Q4HR PRN Administration Nausea / Vomiting Pantoprazole Sodium 40 mg 12/15/20 11:00 12/15/20 11:09 Pantoprazole 40 Mg Tablet PO 40 mg QDAC [facility] Administration Psyllium Hydrophilic Mucilloid 1 packet 12/14/20 09:00 12/15/20 19:39 Psyllium Packet PO Not Given BID [facility] Simethicone 80 mg 12/15/20 07:13 12/15/20 16:08 Simethicone Chew 80 Mg Tablet PO 80 mg TID PRN Administration Gas Sodium Chloride 10 ml 12/13/20 17:26 12/14/20 16:37 Sodium Chloride Flush 0.9% 10 Ml Syringe IVP 10 ml PRN PRN Administration NEEDED PER PROVIDER ORDERS Sodium Chloride 10 ml 12/14/20 01:00 12/16/20 00:05 Sodium Chloride Flush 0.9% 10 Ml Syringe IVP 10 ml 0100,0900,1700 [facility] Administration Sodium Phosphate 250 mg 12/15/20 11:00 12/15/20 22:10 Neutra-Phos 250 Mg Tablet PO 12/17/20 10:59 250 mg BID [facility] Administration Tramadol HCl 25 mg 12/15/20 07:41 12/16/20 00:05 Tramadol 50 Mg Tablet PO 25 mg Q4HR PRN Administration PAIN Zinc Sulfate 220 mg 12/15/20 10:00 12/15/20 11:08 Zinc Sulfate 220 Mg Capsule PO 12/19/20 09:00 220 mg DAILY [facility] Administration - Lab Result Fish Bone Diagrams: 12/16/20 06:55 12/16/20 06:55 - Additional Planning My Orders: My Active Orders 12/16/20 07:45 Potassium Chloride [K-Dur] 20 meq PO ONCE ONE 12/16/20 07:48 MAGNESIUM SULFATE 2 GRAMS IV X1 Magnesium Sulfate 2 Gram [Magnesium Sulfate] 2 gm in 50 ml IV ONCE 12/16/20 08:00 Potassium Chloride/Water 10 mEq/100 mL q1h (Enter # of bags) Potassium Chlor 10 Meq/100 ml [Potassium Chloride] 10 meq in 100 ml IV Q1H Subjective - Subjective Patient Reports: Other (Appeared mildly uncomfortable at time of exam. She complained of feeling bloated and nauseous. She had an episode of diarrhea about 1 hour before the exam. Prior to this her last bowel movement was 5 hours before. She tolerated toast this morning) Objective Vital Signs: Vital Signs - 24 hr 12/15/20 12/15/20 12/15/20 08:10 12:56 15:44 Temperature 36.9 C 36.8 C 36.6 C Heart Rate [ 88 85 85 Brachial] Respiratory 18 17 16 Rate Blood Pressure 110/63 95/58 L 107/63 [Left Brachial artery] O2 Saturation 99 99 99 12/15/20 12/16/20 12/16/20 21:00 06:23 07:34 Temperature 36.9 C 37.0 C 36.9 C Heart Rate [ 88 88 73 Brachial] Respiratory 18 18 16 Rate Blood Pressure 118/72 98/61 102/63 [Left Brachial artery] O2 Saturation 98 98 97 Oxygen O2 Source Room air I&O (Last 24 Hrs): Intake and Output Totals x24h 12/14/20 12/15/20 12/16/20 23:59 23:59 23:59 Intake Total 3290.000 5195.417 Output Total 1050 1105 300 Balance 2240.000 4090.417 -300 General: Alert, Oriented x3, Mild distress, Moderate distress HEENT: PERRLA, EOMI Neck: Supple, No JVD Neuro: Alert, Non Focal, Oriented Times 3 Cardiovascular: Regular rate, Normal S1, Normal S2, No murmurs Respiratory: Chest non-tender, No respiratory distress, Breath sounds nml Abdomen: Normal bowel sounds, Soft, Other (Mild tenderness) Extremities: No clubbing, No cyanosis, No edema - Results Results: Laboratory Results WBC 3.9 x10^3/uL (4.8-10.8) L 12/16/20 06:55 RBC 2.69 10^6/uL (4.20-5.40) L 12/16/20 06:55 Hgb 8.9 g/dL (12.0-16.0) L 12/16/20 06:55 Hct 25.4 % (37.0-47.0) L 12/16/20 06:55 MCV 94.4 fL (81.0-99.0) 12/16/20 06:55 MCH 33.1 pg (27.0-31.0) H 12/16/20 06:55 MCHC 35.0 g/dL (32.0-36.0) 12/16/20 06:55 RDW 16.8 % (12.0-15.0) H 12/16/20 06:55 Plt Count 153 10^3/uL (130-450) 12/16/20 06:55 MPV 8.8 fL (7.9-10.8) 12/16/20 06:55 Neut # (Auto) Not Reportable 12/15/20 07:40 Lymph # (Auto) Not Reportable 12/15/20 07:40 Branch # (Auto) Not Reportable 12/15/20 07:40 Eos # (Auto) Not Reportable 12/15/20 07:40 Baso # (Auto) Not Reportable 12/15/20 07:40 Absolute Nucleated RBC Not Reportable 12/15/20 07:40 Total Counted 100 12/15/20 07:40 Band Neuts % (Manual) 6 % (0-10) 12/15/20 07:40 Abnorm Lymph % (Manual) 0 % 12/15/20 07:40 Metamyelocytes % 1 % (-0) H 12/14/20 04:13 Myelocytes % 1 % (-0) H 12/14/20 04:13 Nucleated RBC % Not Reportable 12/15/20 07:40 Neutrophils # (Manual) 1.1 10^3/uL (1.5-6.6) L 12/15/20 07:40 Lymphocytes # (Manual) 0.5 10^3/uL (1.5-3.5) L 12/15/20 07:40 Monocytes # (Manual) 1.3 10^3/uL (0.0-1.0) H 12/15/20 07:40 Eosinophils # (Manual) 0.2 10^3/uL (0-0.7) 12/15/20 07:40 Basophils # (Manual) 0.0 10^3/uL (0-0.1) 12/15/20 07:40 Differential Comment MANUAL DIFFERENTIAL 12/15/20 07:40 WBC Morphology 1+ TOXIC GRANULATION (NORMAL) 12/15/20 07:40 Platelet Estimate NORMAL (130-450,000) (NORMAL) 12/15/20 07:40 Platelet Morphology NORMAL APPEARANCE (NORMAL) 12/15/20 07:40 RBC Morph Micro Appear 1+ ROULEAUX (NORMAL) 1+ ANISOCYTOSIS (NORMAL) 1+ POLYCHROMASIA (NORMAL) 12/15/20 07:40 RBC Morph Micro Appear 1+ ROULEAUX (NORMAL) 1+ ANISOCYTOSIS (NORMAL) 1+ POLYCHROMASIA (NORMAL) 12/15/20 07:40 RBC Morph Micro Appear 1+ ROULEAUX (NORMAL) 1+ ANISOCYTOSIS (NORMAL) 1+ POLYCHROMASIA (NORMAL) 12/15/20 07:40 VBG pH 7.411 (7.31-7.41) H 12/15/20 07:40 Ionized Calcium 1.09 mmol/L (1.15-1.33) L 12/15/20 07:40 Sodium 132 mmol/L (135-145) L 12/16/20 06:55 Potassium 2.8 mmol/L (3.5-5.0) L 12/16/20 06:55 Chloride 104 mmol/L (101-111) 12/16/20 06:55 Carbon Dioxide 19 mmol/L (21-32) L 12/16/20 06:55 Anion Gap 9.0 (6-13) 12/16/20 06:55 BUN 7 mg/dL (6-20) 12/16/20 06:55 Creatinine 0.8 mg/dL (0.4-1.0) 12/16/20 06:55 Estimated GFR (MDRD) 78 (>89) L 12/16/20 06:55 Glucose 93 mg/dL (70-100) 12/16/20 06:55 Lactic Acid 1.3 mmol/L (0.5-2.2) 12/13/20 12:11 Calcium 7.5 mg/dL (8.5-10.3) L 12/16/20 06:55 Ionized Calcium YES 12/15/20 07:40 Phosphorus 2.2 mg/dL (2.5-4.6) L 12/14/20 04:13 Magnesium 1.9 mg/dL (1.7-2.8) 12/14/20 04:13 Total Bilirubin 0.7 mg/dL (0.2-1.0) 12/15/20 07:40 AST 12 IU/L (10-42) 12/15/20 07:40 ALT 15 IU/L (10-60) 12/15/20 07:40 Alkaline Phosphatase 36 IU/L (42-121) L 12/15/20 07:40 Total Protein 4.8 g/dL (6.7-8.2) L 12/15/20 07:40 Albumin 2.9 g/dL (3.2-5.5) L 12/15/20 07:40 Globulin 1.9 g/dL (2.1-4.2) L 12/15/20 07:40 Albumin/Globulin Ratio 1.5 (1.0-2.2) 12/15/20 07:40 Lipase 18 U/L (22-51) L 12/13/20 12:11 Urine Color YELLOW 12/13/20 14:08 Urine Clarity CLEAR (CLEAR) 12/13/20 14:08 Urine pH 6.0 PH (5.0-7.5) 12/13/20 14:08 Ur Specific [place] 1.025 (1.002-1.030) 12/13/20 14:08 Urine Protein TRACE mg/dL (NEGATIVE) 12/13/20 14:08 Urine Glucose (UA) NEGATIVE mg/dL (NEGATIVE) 12/13/20 14:08 Urine Ketones 15 mg/dL (NEGATIVE) H 12/13/20 14:08 Urine Occult Blood TRACE-INTA (NEGATIVE) 12/13/20 14:08 Urine Nitrite NEGATIVE (NEGATIVE) 12/13/20 14:08 Urine Bilirubin NEGATIVE (NEGATIVE) 12/13/20 14:08 Urine Urobilinogen 0.2 (NORMAL) E.U./dL (NORMAL) 12/13/20 14:08 Ur Leukocyte Esterase NEGATIVE (NEGATIVE) 12/13/20 14:08 Ur Microscopic Review NOT INDICATED 12/13/20 14:08 Urine Culture Comments NOT INDICATED 12/13/20 14:08 Urine HCG, Qual NEGATIVE 12/13/20 14:08 Nasal Adenovirus (PCR) NOT DETECTED 12/13/20 14:53 Nasal B. parapertussis DNA (PCR) NOT DETECTED 12/13/20 14:53 Nasal Coronavir 229E PCR NOT DETECTED 12/13/20 14:53 Nasal Coronavir HKU1 PCR NOT DETECTED 12/13/20 14:53 Nasal Coronavir NL63 PCR NOT DETECTED 12/13/20 14:53 Nasal Coronavir OC43 PCR NOT DETECTED 12/13/20 14:53 Nasal Enterovir/Rhinovir PCR NOT DETECTED 12/13/20 14:53 Nasal Influenza B PCR NOT DETECTED 12/13/20 14:53 Nasal Influenza A PCR NOT DETECTED 12/13/20 14:53 Nasal Parainfluen 1 PCR NOT DETECTED 12/13/20 14:53 Nasal Parainfluen 2 PCR NOT DETECTED 12/13/20 14:53 Nasal Parainfluen 3 PCR NOT DETECTED 12/13/20 14:53 Nasal Parainfluen 4 PCR NOT DETECTED 12/13/20 14:53 Nasal RSV (PCR) NOT DETECTED 12/13/20 14:53 Nasal B.pertussis DNA PCR NOT DETECTED 12/13/20 14:53 Nasal C.pneumoniae (PCR) NOT DETECTED 12/13/20 14:53 Kalia Human Metapneumo PCR NOT DETECTED 12/13/20 14:53 Nasal M.pneumoniae (PCR) NOT DETECTED 12/13/20 14:53 Nasal SARS-CoV-2 (PCR) NOT DETECTED 12/13/20 14:53 Stl C. diff Tox B Gene NEGATIVE (NEGATIVE) 12/13/20 15:45 Sepsis Event Note (H) - Evaluation Current Stage of Sepsis: Sepsis Possible source of Sepsis: positive: GI tract/intra-abdominal - Sepsis Criteria Sepsis Criteria: Recorded Temperature greater than 38.3C or Less than 36C, Recorded Heart Rate greater than 90 bpm, WBC count greater than 10% bands, WBC count greater than 12,000 or less than 4000 ABX Reporting Has patient been on IV antibiotics over the past 48 hours?: Yes
[2020-12-16] MEDS ORDERED: MAGNESIUM SULFATE 2 GRAM 2 GM/50 ML BAG IV ONE (08:00)
[2020-12-16] MEDS: NEUTRA-PHOS 250 MG TABLET PO SCH ×2 (08:27→21:25)
[2020-12-16] MEDS: PANTOPRAZOLE 40 MG TABLET PO SCH (08:28)
[2020-12-16] MEDS: FAMOTIDINE 20 MG TABLET PO SCH ×2 (08:29→21:25)
[2020-12-16] MEDS: ENOXAPARIN 40 MG/0.4 ML SYRINGE SUBQ SCH (08:29)
[2020-12-16] MEDS: PSYLLIUM PACKET PO SCH ×2 (10:13→21:40)
[2020-12-16] MEDS: POTASSIUM CHLOR 10 MEQ/100 ML 10 MEQ/100 ML BAG IV SCH ×4 (10:22→17:08)
[2020-12-16] MEDS: NS W/20 MEQ KCL 1,000 ML IV SCH ×2 (10:24→20:44)
[2020-12-16] MEDS ORDERED: PROMETHAZINE INJ 25 MG in SODIUM CHLORIDE 0.9% 50 ML IV PRN (11:39)
[2020-12-16] MEDS ORDERED: PROMETHAZINE 25 MG TABLET PO PRN (11:47)
[2020-12-16] MEDS: ZINC SULFATE 220 MG CAPSULE PO SCH (11:48)
--- NOTE | 2020-12-16 12:47 | PROVIDER PROGRESS NOTE ---
Subjective - General Admit Date: 12/13/20 - Other Other Information/Narrative: Feeling better today. Still has some discomfort but improving. Less diarrhea and less cramping. Objective - Patient Data Vital Signs: Vital Signs x48h Temp Pulse Resp BP Pulse Ox 12/16/20 12:16 36.5 C 73 18 112/73 99 12/16/20 07:34 36.9 C 73 16 102/63 97 12/16/20 06:23 37.0 C 88 18 98/61 98 Intake & Output: Intake and Output Totals x24h 12/14/20 12/15/20 12/16/20 23:59 23:59 23:59 Intake Total 3290.000 5195.417 1236.367 Output Total 1050 1105 600 Balance 2240.000 4090.417 636.367 - Lab Results Lab Results: 12/16/20 06:55 12/16/20 06:55 Other Lab Results: Lab Results x24hrs 12/16/20 12/16/20 Range/Units 06:55 06:55 WBC 3.9 L (4.8-10.8) x10^3/uL RBC 2.69 L (4.20-5.40) 10^6/uL Hgb 8.9 L (12.0-16.0) g/dL Hct 25.4 L (37.0-47.0) % MCV 94.4 (81.0-99.0) fL MCH 33.1 H (27.0-31.0) pg MCHC 35.0 (32.0-36.0) g/dL RDW 16.8 H (12.0-15.0) % Plt Count 153 (130-450) 10^3/uL MPV 8.8 (7.9-10.8) fL Sodium 132 L (135-145) mmol/L Potassium 2.8 L (3.5-5.0) mmol/L Chloride 104 (101-111) mmol/L Carbon Dioxide 19 L (21-32) mmol/L Anion Gap 9.0 (6-13) BUN 7 (6-20) mg/dL Creatinine 0.8 (0.4-1.0) mg/dL Estimated GFR (MDRD) 78 L (>89) Glucose 93 (70-100) mg/dL Calcium 7.5 L (8.5-10.3) mg/dL - Current Medications Current Medications: Current Medications Generic Name Dose Route Start Last Admin Trade Name Freq PRN Reason Stop Dose Admin Acetaminophen 650 mg 12/13/20 20:02 12/14/20 21:24 Acetaminophen 325 Mg Tablet PO 650 mg Q4HR PRN Administration Pain or Fever > 38C (100.4F) Calcium Carbonate/Glycine 500 mg 12/14/20 18:52 12/15/20 08:33 Calcium Carbonate Chew 500 Mg Tablet PO 1,000 mg Q2H PRN Administration Heartburn Dicyclomine HCl 10 mg 12/14/20 14:00 12/16/20 06:28 Dicyclomine 10 Mg Capsule PO 10 mg TID TRACI Administration Diphenoxylate HCl/Atropine 1 tab 12/15/20 08:00 12/16/20 06:28 Diphenox/Atropine 2.5/0.025 Mg Tablet PO 1 tab TID TRACI Administration Enoxaparin Sodium 40 mg 12/14/20 09:00 12/16/20 08:29 Enoxaparin 40 Mg/0.4 Ml Syringe SUBQ 40 mg DAILY TRACI Administration Famotidine 20 mg 12/14/20 21:17 12/16/20 08:29 Famotidine 20 Mg Tablet PO 20 mg BID TRACI Administration Potassium Chloride/Sodium Chloride 1,000 mls @ 100 mls/hr 12/15/20 07:00 12/16/20 10:24 Normal Saline 0.9% W/20 Meq Kcl IV 100 mls/hr .Q10H TRACI Administration Ampicillin Sodium/Sulbactam 100 mls @ 200 mls/hr 12/15/20 14:00 12/16/20 10:08 Sodium 3 gm/ Sodium Chloride IV 2 mls/hr Q6H TRACI Infusion Loperamide HCl 2 mg 12/14/20 14:34 12/15/20 08:35 Loperamide 2 Mg Capsule PO 2 mg Q2H PRN Administration Diarrhea Ondansetron HCl 4 mg 12/14/20 00:09 12/16/20 10:20 Ondansetron 4 Mg/2 Ml Vial IVP 4 mg Q4HR PRN Administration Nausea / Vomiting Pantoprazole Sodium 40 mg 12/15/20 11:00 12/16/20 08:28 Pantoprazole 40 Mg Tablet PO 40 mg QDAC TRACI Administration Psyllium Hydrophilic Mucilloid 1 packet 12/14/20 09:00 12/16/20 10:13 Psyllium Packet PO Not Given BID TRACI Simethicone 80 mg 12/15/20 07:13 12/15/20 16:08 Simethicone Chew 80 Mg Tablet PO 80 mg TID PRN Administration Gas Sodium Chloride 10 ml 12/13/20 17:26 12/14/20 16:37 Sodium Chloride Flush 0.9% 10 Ml Syringe IVP 10 ml PRN PRN Administration NEEDED PER PROVIDER ORDERS Sodium Chloride 10 ml 12/14/20 01:00 12/16/20 12:11 Sodium Chloride Flush 0.9% 10 Ml Syringe IVP 10 ml 0100,0900,1700 TRACI Administration Sodium Phosphate 250 mg 12/15/20 11:00 12/16/20 08:27 Neutra-Phos 250 Mg Tablet PO 12/17/20 10:59 250 mg BID TRACI Administration Tramadol HCl 25 mg 12/15/20 07:41 12/16/20 00:05 Tramadol 50 Mg Tablet PO 25 mg Q4HR PRN Administration PAIN Zinc Sulfate 220 mg 12/15/20 10:00 12/16/20 11:48 Zinc Sulfate 220 Mg Capsule PO 12/19/20 09:00 220 mg DAILY TRACI Administration Impression/Plan - Problem List Problem List: Improving with excellent supportive care via the hosipitalist service. I expect her to continue to improve. Will be available if I can be of assistance
[2020-12-16] MEDS: ACETAMINOPHEN 325 MG TABLET PO PRN (22:10)
[2020-12-17] MEDS: SODIUM CHLORIDE FLUSH 0.9% 10 ML SYRINGE IVP SCH ×3 (01:05→17:45)
[2020-12-17] MEDS: AMPICILLIN/SULBACTAM 3 GM in SODIUM CHLORIDE 0.9% MINIBAG 100 ML IV SCH ×2 (02:49→08:19)
[2020-12-17] MEDS: DIPHENOX/ATROPINE 2.5/0.025 MG TABLET PO SCH ×3 (07:00→21:43)
[2020-12-17] MEDS: DICYCLOMINE 10 MG CAPSULE PO SCH ×3 (07:00→21:42)
[2020-12-17] MEDS: PANTOPRAZOLE 40 MG TABLET PO SCH (07:00)
[2020-12-17 07:09] LABS: HGB - HEMOGLOBIN 9.5 g/dL (12.0-16.0); MEAN CORPUSCULAR HEMOGLOBIN 33.1 pg (27.0-31.0); MEAN CORPUSCULAR HGB CONC 34.9 g/dL (32.0-36.0); MEAN CORPUSCULAR VOLUME 94.8 fL (81.0-99.0); MEAN PLATELET VOLUME 8.4 fL (7.9-10.8); RED BLOOD COUNT 2.87 10^6/uL (4.20-5.40); RED CELL DISTRIBUTION WIDTH 16.9 % (12.0-15.0); WHITE BLOOD COUNT 3.2 x10^3/uL (4.8-10.8)
--- NOTE | 2020-12-17 07:17 | PROVIDER PROGRESS NOTE ---
Assessment/Plan - Problem List (1) Sepsis Assessment/Plan: Improved/Resolved. Likely GI source Patient has been on cefepime, flagyl and Unasyn. All antibiotics have been discontinued WBC today is 3.2. Bandemia has markedly declined. Blood cultures are no growth to date. (2) Enterocolitis Assessment/Plan: This is thought to be due to capecitabine. The frequency of diarrhea/loose stools has decreased However patient also received antibiotics for a potential infectious cause for a total of 5 days. It was discontinued on 12/17/20 Patient did not tolerate Imodium due to heartburn. Lomotil started 12/15/20. If no improvement will consider octreotide . Patient encouraged to continue taking Metamucil. Bentyl ordered for cramping as needed. Simethicone for bloating We will advance diet as tolerated. General surgery also following. If no improvement by Friday12/18/20 we will reach out to the patient's oncologist in [facility] Dr. Keri Raygoza. (3) GERD (gastroesophageal reflux disease) Assessment/Plan: On Protonix and Pepcid Tums also ordered (5) Metabolic acidosis with normal anion gap and bicarbonate losses Assessment/Plan: Improved. Continue IV hydration and electrolyte replacement as needed. (6) Intravascular volume depletion Assessment/Plan: Due to diarrhea and inadequate p.o. intake. We will continue IV hydration. Overall there is improvement. Patient's daily net balance is positive Patient's vitals are stable. - Current Meds Current Meds: Current Medications Generic Name Dose Route Start Last Admin Trade Name Freq PRN Reason Stop Dose Admin Acetaminophen 650 mg 12/13/20 20:02 12/16/20 22:10 Acetaminophen 325 Mg Tablet PO 650 mg Q4HR PRN Administration Pain or Fever > 38C (100.4F) Calcium Carbonate/Glycine 500 mg 12/14/20 18:52 12/15/20 08:33 Calcium Carbonate Chew 500 Mg Tablet PO 1,000 mg Q2H PRN Administration Heartburn Dicyclomine HCl 10 mg 12/14/20 14:00 12/17/20 07:00 Dicyclomine 10 Mg Capsule PO 10 mg TID TRACI Administration Diphenoxylate HCl/Atropine 1 tab 12/15/20 08:00 12/17/20 07:00 Diphenox/Atropine 2.5/0.025 Mg Tablet PO Not Given TID TRACI Enoxaparin Sodium 40 mg 12/14/20 09:00 12/16/20 08:29 Enoxaparin 40 Mg/0.4 Ml Syringe SUBQ 40 mg DAILY TRACI Administration Famotidine 20 mg 12/14/20 21:17 12/16/20 21:25 Famotidine 20 Mg Tablet PO 20 mg BID TRACI Administration Potassium Chloride/Sodium Chloride 1,000 mls @ 100 mls/hr 12/15/20 07:00 12/17/20 04:23 Normal Saline 0.9% W/20 Meq Kcl IV 100 mls/hr .Q10H TRACI Infusion Ampicillin Sodium/Sulbactam 100 mls @ 200 mls/hr 12/15/20 14:00 12/17/20 03:40 Sodium 3 gm/ Sodium Chloride IV Infused Q6H TRACI Infusion Loperamide HCl 2 mg 12/14/20 14:34 12/15/20 08:35 Loperamide 2 Mg Capsule PO 2 mg Q2H PRN Administration Diarrhea Ondansetron HCl 4 mg 12/14/20 00:09 12/16/20 21:54 Ondansetron 4 Mg/2 Ml Vial IVP 4 mg Q4HR PRN Administration Nausea / Vomiting Pantoprazole Sodium 40 mg 12/15/20 11:00 12/17/20 07:00 Pantoprazole 40 Mg Tablet PO 40 mg QDAC TRACI Administration Psyllium Hydrophilic Mucilloid 1 packet 12/14/20 09:00 12/16/20 21:40 Psyllium Packet PO Not Given BID TRACI Simethicone 80 mg 12/15/20 07:13 12/15/20 16:08 Simethicone Chew 80 Mg Tablet PO 80 mg TID PRN Administration Gas Sodium Chloride 10 ml 12/13/20 17:26 12/14/20 16:37 Sodium Chloride Flush 0.9% 10 Ml Syringe IVP 10 ml PRN PRN Administration NEEDED PER PROVIDER ORDERS Sodium Chloride 10 ml 12/14/20 01:00 12/17/20 01:05 Sodium Chloride Flush 0.9% 10 Ml Syringe IVP 10 ml 0100,0900,1700 TRACI Administration Sodium Phosphate 250 mg 12/15/20 11:00 12/16/20 21:25 Neutra-Phos 250 Mg Tablet PO 12/17/20 10:59 250 mg BID TRACI Administration Tramadol HCl 25 mg 12/15/20 07:41 12/16/20 00:05 Tramadol 50 Mg Tablet PO 25 mg Q4HR PRN Administration PAIN Zinc Sulfate 220 mg 12/15/20 10:00 12/16/20 11:48 Zinc Sulfate 220 Mg Capsule PO 12/19/20 09:00 220 mg DAILY TRACI Administration - Lab Result Fish Bone Diagrams: 12/17/20 07:00 12/17/20 07:00 - Additional Planning My Orders: My Active Orders 12/16/20 11:47 Promethazine [Phenergan] 25 mg PO Q6HR PRN 12/18/20 05:00 BMP - BASIC METABOLIC PANEL [CHEM] DAILYLAB CBC - COMP BLD CT W/AUTO DIFF [HEME] DAILYLAB 12/19/20 05:00 BMP - BASIC METABOLIC PANEL [CHEM] DAILYLAB CBC - COMP BLD CT W/AUTO DIFF [HEME] DAILYLAB 12/20/20 05:00 BMP - BASIC METABOLIC PANEL [CHEM] DAILYLAB CBC - COMP BLD CT W/AUTO DIFF [HEME] DAILYLAB 12/21/20 05:00 BMP - BASIC METABOLIC PANEL [CHEM] DAILYLAB CBC - COMP BLD CT W/AUTO DIFF [HEME] DAILYLAB Subjective - Subjective Patient Reports: Other (Patient complains of abdominal discomfort and feeling bloated. She reported bowel movement around midnight and around 8 AM. It was diarrhea. She has not had any significant substance for food.) Objective Vital Signs: Vital Signs - 24 hr 12/16/20 12/16/20 12/16/20 07:34 12:16 16:10 Temperature 36.9 C 36.5 C 37.0 C Heart Rate [ 73 73 84 Brachial] Respiratory 16 18 18 Rate Blood Pressure 102/63 112/73 115/61 [Left Brachial artery] O2 Saturation 97 99 98 12/17/20 01:15 Temperature 36.9 C Heart Rate [ 80 Brachial] Respiratory 18 Rate Blood Pressure 104/67 [Left Brachial artery] O2 Saturation 97 Oxygen O2 Source Room air I&O (Last 24 Hrs): Intake and Output Totals x24h 12/15/20 12/16/20 12/17/20 23:59 23:59 23:59 Intake Total 5195.417 2826.034 778.333 Output Total 1105 600 150 Balance 4090.417 2226.034 628.333 General: Alert, Oriented x3, Mild distress HEENT: PERRLA, EOMI Neck: Supple, No JVD Neuro: Alert, Non Focal, Oriented Times 3 Cardiovascular: Regular rate, Normal S1, Normal S2, No murmurs Respiratory: Chest non-tender, No respiratory distress, Breath sounds nml Abdomen: Normal bowel sounds, Other (bloated, mild discomfort) Extremities: No clubbing, No cyanosis, No edema Skin: No rashes - Results Results: Laboratory Results WBC 3.2 x10^3/uL (4.8-10.8) L 12/17/20 07:00 RBC 2.87 10^6/uL (4.20-5.40) L 12/17/20 07:00 Hgb 9.5 g/dL (12.0-16.0) L 12/17/20 07:00 Hct 27.2 % (37.0-47.0) L 12/17/20 07:00 MCV 94.8 fL (81.0-99.0) 12/17/20 07:00 MCH 33.1 pg (27.0-31.0) H 12/17/20 07:00 MCHC 34.9 g/dL (32.0-36.0) 12/17/20 07:00 RDW 16.9 % (12.0-15.0) H 12/17/20 07:00 Plt Count 156 10^3/uL (130-450) 12/17/20 07:00 MPV 8.4 fL (7.9-10.8) 12/17/20 07:00 Neut # (Auto) Not Reportable 12/15/20 07:40 Lymph # (Auto) Not Reportable 12/15/20 07:40 [place] # (Auto) Not Reportable 12/15/20 07:40 Eos # (Auto) Not Reportable 12/15/20 07:40 Baso # (Auto) Not Reportable 12/15/20 07:40 Absolute Nucleated RBC Not Reportable 12/15/20 07:40 Total Counted 100 12/15/20 07:40 Band Neuts % (Manual) 6 % (0-10) 12/15/20 07:40 Abnorm Lymph % (Manual) 0 % 12/15/20 07:40 Metamyelocytes % 1 % (-0) H 12/14/20 04:13 Myelocytes % 1 % (-0) H 12/14/20 04:13 Nucleated RBC % Not Reportable 12/15/20 07:40 Neutrophils # (Manual) 1.1 10^3/uL (1.5-6.6) L 12/15/20 07:40 Lymphocytes # (Manual) 0.5 10^3/uL (1.5-3.5) L 12/15/20 07:40 Monocytes # (Manual) 1.3 10^3/uL (0.0-1.0) H 12/15/20 07:40 Eosinophils # (Manual) 0.2 10^3/uL (0-0.7) 12/15/20 07:40 Basophils # (Manual) 0.0 10^3/uL (0-0.1) 12/15/20 07:40 Differential Comment MANUAL DIFFERENTIAL 12/15/20 07:40 WBC Morphology 1+ TOXIC GRANULATION (NORMAL) 12/15/20 07:40 Platelet Estimate NORMAL (130-450,000) (NORMAL) 12/15/20 07:40 Platelet Morphology NORMAL APPEARANCE (NORMAL) 12/15/20 07:40 RBC Morph Micro Appear 1+ ROULEAUX (NORMAL) 1+ ANISOCYTOSIS (NORMAL) 1+ POLYCHROMASIA (NORMAL) 12/15/20 07:40 RBC Morph Micro Appear 1+ ROULEAUX (NORMAL) 1+ ANISOCYTOSIS (NORMAL) 1+ POLYCHROMASIA (NORMAL) 12/15/20 07:40 RBC Morph Micro Appear 1+ ROULEAUX (NORMAL) 1+ ANISOCYTOSIS (NORMAL) 1+ POLYCHROMASIA (NORMAL) 12/15/20 07:40 VBG pH 7.411 (7.31-7.41) H 12/15/20 07:40 Ionized Calcium 1.09 mmol/L (1.15-1.33) L 12/15/20 07:40 Sodium 132 mmol/L (135-145) L 12/16/20 06:55 Potassium 2.8 mmol/L (3.5-5.0) L 12/16/20 06:55 Chloride 104 mmol/L (101-111) 12/16/20 06:55 Carbon Dioxide 19 mmol/L (21-32) L 12/16/20 06:55 Anion Gap 9.0 (6-13) 12/16/20 06:55 BUN 7 mg/dL (6-20) 12/16/20 06:55 Creatinine 0.8 mg/dL (0.4-1.0) 12/16/20 06:55 Estimated GFR (MDRD) 78 (>89) L 12/16/20 06:55 Glucose 93 mg/dL (70-100) 12/16/20 06:55 Lactic Acid 1.3 mmol/L (0.5-2.2) 12/13/20 12:11 Calcium 7.5 mg/dL (8.5-10.3) L 12/16/20 06:55 Ionized Calcium YES 12/15/20 07:40 Phosphorus 2.2 mg/dL (2.5-4.6) L 12/14/20 04:13 Magnesium 1.9 mg/dL (1.7-2.8) 12/14/20 04:13 Total Bilirubin 0.7 mg/dL (0.2-1.0) 12/15/20 07:40 AST 12 IU/L (10-42) 12/15/20 07:40 ALT 15 IU/L (10-60) 12/15/20 07:40 Alkaline Phosphatase 36 IU/L (42-121) L 12/15/20 07:40 Total Protein 4.8 g/dL (6.7-8.2) L 12/15/20 07:40 Albumin 2.9 g/dL (3.2-5.5) L 12/15/20 07:40 Globulin 1.9 g/dL (2.1-4.2) L 12/15/20 07:40 Albumin/Globulin Ratio 1.5 (1.0-2.2) 12/15/20 07:40 Lipase 18 U/L (22-51) L 12/13/20 12:11 Urine Color YELLOW 12/13/20 14:08 Urine Clarity CLEAR (CLEAR) 12/13/20 14:08 Urine pH 6.0 PH (5.0-7.5) 12/13/20 14:08 Ur Specific [place] 1.025 (1.002-1.030) 12/13/20 14:08 Urine Protein TRACE mg/dL (NEGATIVE) 12/13/20 14:08 Urine Glucose (UA) NEGATIVE mg/dL (NEGATIVE) 12/13/20 14:08 Urine Ketones 15 mg/dL (NEGATIVE) H 12/13/20 14:08 Urine Occult Blood TRACE-INTA (NEGATIVE) 12/13/20 14:08 Urine Nitrite NEGATIVE (NEGATIVE) 12/13/20 14:08 Urine Bilirubin NEGATIVE (NEGATIVE) 12/13/20 14:08 Urine Urobilinogen 0.2 (NORMAL) E.U./dL (NORMAL) 12/13/20 14:08 Ur Leukocyte Esterase NEGATIVE (NEGATIVE) 12/13/20 14:08 Ur Microscopic Review NOT INDICATED 12/13/20 14:08 Urine Culture Comments NOT INDICATED 12/13/20 14:08 Urine HCG, Qual NEGATIVE 12/13/20 14:08 Nasal Adenovirus (PCR) NOT DETECTED 12/13/20 14:53 Nasal B. parapertussis DNA (PCR) NOT DETECTED 12/13/20 14:53 Nasal Coronavir 229E PCR NOT DETECTED 12/13/20 14:53 Nasal Coronavir HKU1 PCR NOT DETECTED 12/13/20 14:53 Nasal Coronavir NL63 PCR NOT DETECTED 12/13/20 14:53 Nasal Coronavir OC43 PCR NOT DETECTED 12/13/20 14:53 Nasal Enterovir/Rhinovir PCR NOT DETECTED 12/13/20 14:53 Nasal Influenza B PCR NOT DETECTED 12/13/20 14:53 Nasal Influenza A PCR NOT DETECTED 12/13/20 14:53 Nasal Parainfluen 1 PCR NOT DETECTED 12/13/20 14:53 Nasal Parainfluen 2 PCR NOT DETECTED 12/13/20 14:53 Nasal Parainfluen 3 PCR NOT DETECTED 12/13/20 14:53 Nasal Parainfluen 4 PCR NOT DETECTED 12/13/20 14:53 Nasal RSV (PCR) NOT DETECTED 12/13/20 14:53 Nasal B.pertussis DNA PCR NOT DETECTED 12/13/20 14:53 Nasal C.pneumoniae (PCR) NOT DETECTED 12/13/20 14:53 Kal[place] Human Metapneumo PCR NOT DETECTED 12/13/20 14:53 Nasal M.pneumoniae (PCR) NOT DETECTED 12/13/20 14:53 Nasal SARS-CoV-2 (PCR) NOT DETECTED 12/13/20 14:53 Stl C. diff Tox B Gene NEGATIVE (NEGATIVE) 12/13/20 15:45 Sepsis Event Note (H) - Evaluation Current Stage of Sepsis: Sepsis Possible source of Sepsis: positive: GI tract/intra-abdominal - Sepsis Criteria Sepsis Criteria: Recorded Temperature greater than 38.3C or Less than 36C, Recorded Heart Rate greater than 90 bpm, WBC count greater than 10% bands, WBC count greater than 12,000 or less than 4000 ABX Reporting Has patient been on IV antibiotics over the past 48 hours?: Yes
[2020-12-17 07:34] LABS: BUN - BLOOD UREA NITROGEN < 5 mg/dL (6-20); CALCIUM 7.7 mg/dL (8.5-10.3); CARBON DIOXIDE - CO2 23 mmol/L (21-32); CHLORIDE 102 mmol/L (101-111); CREATININE 0.7 mg/dL (0.4-1.0); GLUCOSE 104 mg/dL (70-100)
[2020-12-17] MEDS: FAMOTIDINE 20 MG TABLET PO SCH ×2 (08:18→21:42)
[2020-12-17] MEDS: traMADol 50 MG TABLET PO PRN (08:18)
[2020-12-17] MEDS: NEUTRA-PHOS 250 MG TABLET PO SCH (08:18)
[2020-12-17] MEDS: ENOXAPARIN 40 MG/0.4 ML SYRINGE SUBQ SCH (08:19)
[2020-12-17] MEDS: LOPERAMIDE 2 MG CAPSULE PO PRN (09:13)
[2020-12-17] MEDS: PSYLLIUM PACKET PO SCH ×2 (09:23→21:45)
[2020-12-17] MEDS: NS W/20 MEQ KCL 1,000 ML IV SCH ×2 (10:49→21:38)
[2020-12-17] MEDS: ZINC SULFATE 220 MG CAPSULE PO SCH (10:49)
[2020-12-17] MEDS ORDERED: MAG HYDROX/AL HYDROX/SIMETH 30 ML UDC PO PRN (11:28)
[2020-12-17] MEDS: ONDANSETRON 4 MG/2 ML VIAL IVP PRN (21:33)
[2020-12-17] MEDS: ACETAMINOPHEN 325 MG TABLET PO PRN (21:42)
[2020-12-18 06:11] LABS: BASOPHILS # (AUTO) 0.1 10^3/uL (0.0-0.1); BASOPHILS % (AUTO) 1.3 %; EOSINOPHILS # (AUTO) 0.2 10^3/uL (0.0-0.7); EOSINOPHILS % (AUTO) 3.7 %; HGB - HEMOGLOBIN 9.2 g/dL (12.0-16.0); LYMPHOCYTES # (AUTO) 0.6 10^3/uL (1.5-3.5); LYMPHOCYTES % (AUTO) 13.7 %; MEAN CORPUSCULAR HEMOGLOBIN 32.6 pg (27.0-31.0); MEAN CORPUSCULAR HGB CONC 33.8 g/dL (32.0-36.0); MEAN CORPUSCULAR VOLUME 96.5 fL (81.0-99.0); MEAN PLATELET VOLUME 9.2 fL (7.9-10.8); MONOCYTES # (AUTO) 0.8 10^3/uL (0.0-1.0); MONOCYTES % (AUTO) 18.1 %; NEUTROPHILS # (AUTO) 2.8 10^3/uL (1.5-6.6); NEUTROPHILS % (AUTO) 61.9 %; PLT - PLATELET COUNT 200 10^3/uL (130-450); RED BLOOD COUNT 2.82 10^6/uL (4.20-5.40); RED CELL DISTRIBUTION WIDTH 17.2 % (12.0-15.0); WHITE BLOOD COUNT 4.6 x10^3/uL (4.8-10.8)
[2020-12-18 06:18] LABS: BUN - BLOOD UREA NITROGEN < 5 mg/dL (6-20); CALCIUM 7.5 mg/dL (8.5-10.3); CARBON DIOXIDE - CO2 23 mmol/L (21-32); CHLORIDE 99 mmol/L (101-111); CREATININE 0.7 mg/dL (0.4-1.0); GLUCOSE 110 mg/dL (70-100)
[2020-12-18] MEDS: SODIUM CHLORIDE FLUSH 0.9% 10 ML SYRINGE IVP SCH ×3 (06:37→16:20)
[2020-12-18] MEDS: NS W/20 MEQ KCL 1,000 ML IV SCH ×3 (06:38→16:19)
[2020-12-18] MEDS: PSYLLIUM PACKET PO SCH ×2 (06:38→21:12)
[2020-12-18] MEDS: ENOXAPARIN 40 MG/0.4 ML SYRINGE SUBQ SCH ×2 (06:39→06:50)
[2020-12-18] MEDS: FAMOTIDINE 20 MG TABLET PO SCH ×2 (06:49→21:13)
[2020-12-18] MEDS: DIPHENOX/ATROPINE 2.5/0.025 MG TABLET PO SCH ×3 (06:50→21:13)
[2020-12-18] MEDS: PANTOPRAZOLE 40 MG TABLET PO SCH (06:50)
[2020-12-18] MEDS: ZINC SULFATE 220 MG CAPSULE PO SCH (06:50)
[2020-12-18] MEDS: DICYCLOMINE 10 MG CAPSULE PO SCH ×3 (06:50→21:13)
[2020-12-18] MEDS: ACETAMINOPHEN 325 MG TABLET PO PRN (10:58)
[2020-12-18] MEDS: ONDANSETRON 4 MG/2 ML VIAL IVP PRN (11:00)
[2020-12-18] MEDS: traMADol 50 MG TABLET PO PRN (11:00)
--- NOTE | 2020-12-18 22:05 | PROVIDER PROGRESS NOTE ---
Assessment/Plan - Problem List (1) Enterocolitis Assessment/Plan: This is thought to be due to her chemo, Capecitabine. The frequency of diarrhea/loose stools has decreased. However patient also received antibiotics for a potential infectious cause for a total of 5 days. It was discontinued on 12/17/20. General surgery was following along. Patient did not tolerate Imodium, it gave her heartburn. Lomotil started 12/15/20. If no improvement could consider Octreotide . Patient encouraged to continue taking Metamucil. Bentyl ordered for cramping as needed. Simethicone ordered for bloating, but she refuses that. Will de-escalate her diet (she was advanced from clears right to a Reg diet and received spicy and solid foods). Will order soft diet, low fiber, no milk products or spicy food. I informed her that she could be discharged soon with prn meds to take at home, to finish managing this colitis and to advance her diet as tolerated, on her own. (2) GERD (gastroesophageal reflux disease) Assessment/Plan: On Protonix and Pepcid. Tums also ordered, which she says she takes them all. Will de-escalate diet (was advanced from clears right to a Reg diet and received spicy and solid foods). I informed her that she could be discharged soon with prn meds to take at home, to finish managing this colitis. (3) Breast CA The patient's oncologist is in [facility], in [place], Dr. Keri Raygoza. (4) Intravascular volume depletion Assessment/Plan: Resolved. It was due to diarrhea and inadequate p.o. intake. Overall there is improvement. Patient's daily net balance is positive We will taper down IV hydration now, to see if po fluid intake will be adequate. (5) Sepsis Resolved. Patient got cefepime, flagyl and Unasyn. All antibiotics have been discontinued Bandemia has markedly declined. Blood cultures are no growth to date. (6) Metabolic acidosis with normal anion gap and bicarbonate losses Assessment/Plan: Resolved. Continue IV hydration and electrolyte replacement as needed. - Current Meds Current Meds: Current Medications Generic Name Dose Route Start Last Admin Trade Name Freq PRN Reason Stop Dose Admin Acetaminophen 650 mg 12/13/20 20:02 12/18/20 10:58 Acetaminophen 325 Mg Tablet PO 650 mg Q4HR PRN Administration Pain or Fever > 38C (100.4F) Al Hydroxide/Mg Hydroxide 30 ml 12/17/20 11:28 12/17/20 14:19 Mag Hydrox/Al Hydrox/Simeth 30 Ml Udc PO 15 ml Q4HR PRN Administration INDIGESTION Calcium Carbonate/Glycine 500 mg 12/14/20 18:52 12/15/20 08:33 Calcium Carbonate Chew 500 Mg Tablet PO 1,000 mg Q2H PRN Administration Heartburn Dicyclomine HCl 10 mg 12/14/20 14:00 12/18/20 21:13 Dicyclomine 10 Mg Capsule PO 10 mg TID TRACI Administration Diphenoxylate HCl/Atropine 1 tab 12/15/20 08:00 12/18/20 21:13 Diphenox/Atropine 2.5/0.025 Mg Tablet PO 1 tab TID TRACI Administration Enoxaparin Sodium 40 mg 12/14/20 09:00 12/18/20 06:50 Enoxaparin 40 Mg/0.4 Ml Syringe SUBQ 40 mg DAILY TRACI Administration Famotidine 20 mg 12/14/20 21:17 12/18/20 21:13 Famotidine 20 Mg Tablet PO 20 mg BID TRACI Administration Potassium Chloride/Sodium Chloride 1,000 mls @ 100 mls/hr 12/15/20 07:00 12/18/20 16:19 Normal Saline 0.9% W/20 Meq Kcl IV 100 mls/hr .Q10H TRACI Administration Loperamide HCl 2 mg 12/14/20 14:34 12/17/20 09:13 Loperamide 2 Mg Capsule PO 2 mg Q2H PRN Administration Diarrhea Ondansetron HCl 4 mg 12/14/20 00:09 12/18/20 11:00 Ondansetron 4 Mg/2 Ml Vial IVP 4 mg Q4HR PRN Administration Nausea / Vomiting Pantoprazole Sodium 40 mg 12/15/20 11:00 12/18/20 06:50 Pantoprazole 40 Mg Tablet PO 40 mg QDAC TRACI Administration Psyllium Hydrophilic Mucilloid 1 packet 12/14/20 09:00 12/18/20 21:12 Psyllium Packet PO Not Given BID TRACI Simethicone 80 mg 12/15/20 07:13 12/15/20 16:08 Simethicone Chew 80 Mg Tablet PO 80 mg TID PRN Administration Gas Sodium Chloride 10 ml 12/13/20 17:26 12/14/20 16:37 Sodium Chloride Flush 0.9% 10 Ml Syringe IVP 10 ml PRN PRN Administration NEEDED PER PROVIDER ORDERS Sodium Chloride 10 ml 12/14/20 01:00 12/18/20 16:20 Sodium Chloride Flush 0.9% 10 Ml Syringe IVP Not Given 0100,0900,1700 TRACI Tramadol HCl 25 mg 12/15/20 07:41 12/18/20 11:00 Tramadol 50 Mg Tablet PO 25 mg Q4HR PRN Administration PAIN Zinc Sulfate 220 mg 12/15/20 10:00 12/18/20 06:50 Zinc Sulfate 220 Mg Capsule PO 12/19/20 09:00 220 mg DAILY TRACI Administration - Lab Result Fish Bone Diagrams: 12/18/20 05:16 12/18/20 05:16 Subjective - Subjective Patient Reports: Feeling Better, Other (She reports having severe 10/10 cramping abdominal pain for which she needed Bentyl and her narcotic pain meds which started after eating her lunch and dinner (solid foods). Then had the urge for a bowel movement and had semiformed stool and then her crampy abdominalspasms and all symptoms resolved) Objective Vital Signs: Vital Signs - 24 hr 12/18/20 12/18/20 12/18/20 01:48 08:23 16:06 Temperature 37.1 C 36.6 C 36.8 C Heart Rate [ 82 73 77 Brachial] Respiratory 18 18 18 Rate Blood Pressure 104/65 105/64 113/61 [Left Brachial artery] O2 Saturation 96 99 96 Oxygen O2 Source Room air I&O (Last 24 Hrs): Intake and Output Totals x24h 12/16/20 12/17/20 12/18/20 23:59 23:59 23:59 Intake Total 2826.034 2683.333 2368.333 Output Total 600 650 580 Balance 2226.034 2033.333 1788.333 General: Alert, Oriented x3 HEENT: Mucous membr. moist/pink Neck: Supple, No JVD Neuro: Alert, Non Focal Cardiovascular: Regular rate Respiratory: No respiratory distress Abdomen: Normal bowel sounds, Soft, No tenderness Extremities: No edema - Results Results: Laboratory Results WBC 4.6 x10^3/uL (4.8-10.8) L 12/18/20 05:16 RBC 2.82 10^6/uL (4.20-5.40) L 12/18/20 05:16 Hgb 9.2 g/dL (12.0-16.0) L 12/18/20 05:16 Hct 27.2 % (37.0-47.0) L 12/18/20 05:16 MCV 96.5 fL (81.0-99.0) 12/18/20 05:16 MCH 32.6 pg (27.0-31.0) H 12/18/20 05:16 MCHC 33.8 g/dL (32.0-36.0) 12/18/20 05:16 RDW 17.2 % (12.0-15.0) H 12/18/20 05:16 Plt Count 200 10^3/uL (130-450) 12/18/20 05:16 MPV 9.2 fL (7.9-10.8) 12/18/20 05:16 Neut # (Auto) 2.8 10^3/uL (1.5-6.6) 12/18/20 05:16 Lymph # (Auto) 0.6 10^3/uL (1.5-3.5) L 12/18/20 05:16 [place] # (Auto) 0.8 10^3/uL (0.0-1.0) 12/18/20 05:16 Eos # (Auto) 0.2 10^3/uL (0.0-0.7) 12/18/20 05:16 Baso # (Auto) 0.1 10^3/uL (0.0-0.1) 12/18/20 05:16 Absolute Nucleated RBC 0.00 x10^3/uL 12/18/20 05:16 Total Counted 100 12/15/20 07:40 Band Neuts % (Manual) 6 % (0-10) 12/15/20 07:40 Abnorm Lymph % (Manual) 0 % 12/15/20 07:40 Metamyelocytes % 1 % (-0) H 12/14/20 04:13 Myelocytes % 1 % (-0) H 12/14/20 04:13 Nucleated RBC % 0.0 /100WBC 12/18/20 05:16 Neutrophils # (Manual) 1.1 10^3/uL (1.5-6.6) L 12/15/20 07:40 Lymphocytes # (Manual) 0.5 10^3/uL (1.5-3.5) L 12/15/20 07:40 Monocytes # (Manual) 1.3 10^3/uL (0.0-1.0) H 12/15/20 07:40 Eosinophils # (Manual) 0.2 10^3/uL (0-0.7) 12/15/20 07:40 Basophils # (Manual) 0.0 10^3/uL (0-0.1) 12/15/20 07:40 Differential Comment MANUAL DIFFERENTIAL 12/15/20 07:40 WBC Morphology 1+ TOXIC GRANULATION (NORMAL) 12/15/20 07:40 Platelet Estimate NORMAL (130-450,000) (NORMAL) 12/15/20 07:40 Platelet Morphology NORMAL APPEARANCE (NORMAL) 12/15/20 07:40 RBC Morph Micro Appear 1+ ROULEAUX (NORMAL) 1+ ANISOCYTOSIS (NORMAL) 1+ POLYCHROMASIA (NORMAL) 12/15/20 07:40 RBC Morph Micro Appear 1+ ROULEAUX (NORMAL) 1+ ANISOCYTOSIS (NORMAL) 1+ POLYCHROMASIA (NORMAL) 12/15/20 07:40 RBC Morph Micro Appear 1+ ROULEAUX (NORMAL) 1+ ANISOCYTOSIS (NORMAL) 1+ POLYCHROMASIA (NORMAL) 12/15/20 07:40 VBG pH 7.411 (7.31-7.41) H 12/15/20 07:40 Ionized Calcium 1.09 mmol/L (1.15-1.33) L 12/15/20 07:40 Sodium 129 mmol/L (135-145) L 12/18/20 05:16 Potassium 3.7 mmol/L (3.5-5.0) 12/18/20 05:16 Chloride 99 mmol/L (101-111) L 12/18/20 05:16 Carbon Dioxide 23 mmol/L (21-32) 12/18/20 05:16 Anion Gap 7.0 (6-13) 12/18/20 05:16 BUN < 5 mg/dL (6-20) L 12/18/20 05:16 Creatinine 0.7 mg/dL (0.4-1.0) 12/18/20 05:16 Estimated GFR (MDRD) 91 (>89) 12/18/20 05:16 Glucose 110 mg/dL (70-100) H 12/18/20 05:16 Lactic Acid 1.3 mmol/L (0.5-2.2) 12/13/20 12:11 Calcium 7.5 mg/dL (8.5-10.3) L 12/18/20 05:16 Ionized Calcium YES 12/15/20 07:40 Phosphorus 2.2 mg/dL (2.5-4.6) L 12/14/20 04:13 Magnesium 1.9 mg/dL (1.7-2.8) 12/14/20 04:13 Total Bilirubin 0.7 mg/dL (0.2-1.0) 12/15/20 07:40 AST 12 IU/L (10-42) 12/15/20 07:40 ALT 15 IU/L (10-60) 12/15/20 07:40 Alkaline Phosphatase 36 IU/L (42-121) L 12/15/20 07:40 Total Protein 4.8 g/dL (6.7-8.2) L 12/15/20 07:40 Albumin 2.9 g/dL (3.2-5.5) L 12/15/20 07:40 Globulin 1.9 g/dL (2.1-4.2) L 12/15/20 07:40 Albumin/Globulin Ratio 1.5 (1.0-2.2) 12/15/20 07:40 Lipase 18 U/L (22-51) L 12/13/20 12:11 Urine Color YELLOW 12/13/20 14:08 Urine Clarity CLEAR (CLEAR) 12/13/20 14:08 Urine pH 6.0 PH (5.0-7.5) 12/13/20 14:08 Ur Specific [place] 1.025 (1.002-1.030) 12/13/20 14:08 Urine Protein TRACE mg/dL (NEGATIVE) 12/13/20 14:08 Urine Glucose (UA) NEGATIVE mg/dL (NEGATIVE) 12/13/20 14:08 Urine Ketones 15 mg/dL (NEGATIVE) H 12/13/20 14:08 Urine Occult Blood TRACE-INTA (NEGATIVE) 12/13/20 14:08 Urine Nitrite NEGATIVE (NEGATIVE) 12/13/20 14:08 Urine Bilirubin NEGATIVE (NEGATIVE) 12/13/20 14:08 Urine Urobilinogen 0.2 (NORMAL) E.U./dL (NORMAL) 12/13/20 14:08 Ur Leukocyte Esterase NEGATIVE (NEGATIVE) 12/13/20 14:08 Ur Microscopic Review NOT INDICATED 12/13/20 14:08 Urine Culture Comments NOT INDICATED 12/13/20 14:08 Urine HCG, Qual NEGATIVE 12/13/20 14:08 Nasal Adenovirus (PCR) NOT DETECTED 12/13/20 14:53 Nasal B. parapertussis DNA (PCR) NOT DETECTED 12/13/20 14:53 Nasal Coronavir 229E PCR NOT DETECTED 12/13/20 14:53 Nasal Coronavir HKU1 PCR NOT DETECTED 12/13/20 14:53 Nasal Coronavir NL63 PCR NOT DETECTED 12/13/20 14:53 Nasal Coronavir OC43 PCR NOT DETECTED 12/13/20 14:53 Nasal Enterovir/Rhinovir PCR NOT DETECTED 12/13/20 14:53 Nasal Influenza B PCR NOT DETECTED 12/13/20 14:53 Nasal Influenza A PCR NOT DETECTED 12/13/20 14:53 Nasal Parainfluen 1 PCR NOT DETECTED 12/13/20 14:53 Nasal Parainfluen 2 PCR NOT DETECTED 12/13/20 14:53 Nasal Parainfluen 3 PCR NOT DETECTED 12/13/20 14:53 Nasal Parainfluen 4 PCR NOT DETECTED 12/13/20 14:53 Nasal RSV (PCR) NOT DETECTED 12/13/20 14:53 Nasal B.pertussis DNA PCR NOT DETECTED 12/13/20 14:53 Nasal C.pneumoniae (PCR) NOT DETECTED 12/13/20 14:53 Kalia Human Metapneumo PCR NOT DETECTED 12/13/20 14:53 Nasal M.pneumoniae (PCR) NOT DETECTED 12/13/20 14:53 Nasal SARS-CoV-2 (PCR) NOT DETECTED 12/13/20 14:53 Stl C. diff Tox B Gene NEGATIVE (NEGATIVE) 12/13/20 15:45 Ref Lab Test Result REPORT 12/13/20 21:20 Sepsis Event Note (H) - Evaluation Current Stage of Sepsis: Sepsis Possible source of Sepsis: positive: GI tract/intra-abdominal - Sepsis Criteria Sepsis Criteria: Recorded Temperature greater than 38.3C or Less than 36C, Recorded Heart Rate greater than 90 bpm, WBC count greater than 10% bands, WBC count greater than 12,000 or less than 4000
[2020-12-19] MEDS: NS W/20 MEQ KCL 1,000 ML IV SCH (01:42)
[2020-12-19] MEDS: SODIUM CHLORIDE FLUSH 0.9% 10 ML SYRINGE IVP SCH ×4 (01:44→23:54)
[2020-12-19] MEDS: PANTOPRAZOLE 40 MG TABLET PO SCH (06:46)
[2020-12-19] MEDS: DICYCLOMINE 10 MG CAPSULE PO SCH ×3 (06:46→20:53)
[2020-12-19] MEDS: DIPHENOX/ATROPINE 2.5/0.025 MG TABLET PO SCH ×4 (06:48→21:13)
[2020-12-19 07:11] LABS: CALCIUM 7.6 mg/dL (8.5-10.3); CREATININE 0.7 mg/dL (0.4-1.0); MAGNESIUM 1.9 mg/dL (1.7-2.8)
[2020-12-19 07:28] LABS: MEAN CORPUSCULAR HEMOGLOBIN 32.8 pg (27.0-31.0); MEAN CORPUSCULAR HGB CONC 33.8 g/dL (32.0-36.0)
[2020-12-19 07:31] LABS: BASOPHILS # (AUTO) 0.1 10^3/uL (0.0-0.1); BASOPHILS % (AUTO) 1.3 %; EOSINOPHILS # (AUTO) 0.2 10^3/uL (0.0-0.7); EOSINOPHILS % (AUTO) 3.8 %; HGB - HEMOGLOBIN 8.8 g/dL (12.0-16.0); LYMPHOCYTES # (AUTO) 0.6 10^3/uL (1.5-3.5); LYMPHOCYTES % (AUTO) 12.4 %; MONOCYTES # (AUTO) 0.8 10^3/uL (0.0-1.0); NEUTROPHILS # (AUTO) 3.1 10^3/uL (1.5-6.6); NEUTROPHILS % (AUTO) 65.7 %; PLT - PLATELET COUNT 195 10^3/uL (130-450); RED BLOOD COUNT 2.68 10^6/uL (4.20-5.40); RED CELL DISTRIBUTION WIDTH 17.6 % (12.0-15.0); WHITE BLOOD COUNT 4.7 x10^3/uL (4.8-10.8)
[2020-12-19 07:46] LABS: PLATELET MORPHOLOGY RARE GIANT PLATELETS (NORMAL)
[2020-12-19] MEDS: ONDANSETRON 4 MG/2 ML VIAL IVP PRN ×3 (08:21→20:53)
[2020-12-19] MEDS: PSYLLIUM PACKET PO SCH ×2 (08:40→20:53)
[2020-12-19] MEDS: ZINC SULFATE 220 MG CAPSULE PO SCH (08:47)
[2020-12-19] MEDS: ENOXAPARIN 40 MG/0.4 ML SYRINGE SUBQ SCH (08:49)
--- NOTE | 2020-12-19 09:17 | PROVIDER PROGRESS NOTE ---
Subjective - Prog Note Date Prog Note Date: 12/19/20 - Subjective Subjective: She thought she had been improving as she only had one episode of diarrhea yesterday and no vomiting. This morning she has had 2 large episodes of diarrhea as well as episode of emesis after breakfast. She had associated abdominal cramping prior to the diarrhea. No blood in her stool. Current Medications - Current Medications Current Medications: Active Medications Acetaminophen (Acetaminophen 325 Mg Tablet) 650 mg PO Q4HR PRN PRN Reason: Pain or Fever > 38C (100.4F) Last Admin: 12/18/20 10:58 Dose: 650 mg Documented by: Al Hydroxide/Mg Hydroxide (Mag Hydrox/Al Hydrox/Simeth 30 Ml Udc) 30 ml PO Q4HR PRN PRN Reason: INDIGESTION Last Admin: 12/17/20 14:19 Dose: 15 ml Documented by: Calcium Carbonate/Glycine (Calcium Carbonate Chew 500 Mg Tablet) 500 mg PO Q2H PRN PRN Reason: Heartburn Last Admin: 12/15/20 08:33 Dose: 1,000 mg Documented by: Dicyclomine HCl (Dicyclomine 10 Mg Capsule) 10 mg PO TID [facility] Last Admin: 12/19/20 06:46 Dose: 10 mg Documented by: Diphenhydramine HCl (Diphenhydramine 25 Mg Capsule) 25 mg PO QPM PRN PRN Reason: Insomnia Diphenoxylate HCl/Atropine (Diphenox/Atropine 2.5/0.025 Mg Tablet) 1 tab PO TID [facility] Last Admin: 12/19/20 06:48 Dose: Not Given Documented by: Enoxaparin Sodium (Enoxaparin 40 Mg/0.4 Ml Syringe) 40 mg SUBQ DAILY [facility] Last Admin: 12/19/20 08:49 Dose: 40 mg Documented by: Loperamide HCl (Loperamide 2 Mg Capsule) 2 mg PO Q2H PRN PRN Reason: Diarrhea Last Admin: 12/17/20 09:13 Dose: 2 mg Documented by: Multi-Ingredient Ointment (Emollient Cream 57 Gm Tube) 1 applic TOP BID PRN PRN Reason: Dry Skin Ondansetron HCl (Ondansetron 4 Mg/2 Ml Vial) 4 mg IVP Q4HR PRN PRN Reason: Nausea / Vomiting Last Admin: 12/19/20 08:21 Dose: 4 mg Documented by: Pantoprazole Sodium (Pantoprazole 40 Mg Tablet) 40 mg PO QDAC [facility] Last Admin: 12/19/20 06:46 Dose: 40 mg Documented by: Promethazine HCl (Promethazine 25 Mg Tablet) 25 mg PO Q6HR PRN PRN Reason: Nausea / Vomiting Psyllium Hydrophilic Mucilloid (Psyllium Packet) 1 packet PO BID [facility] Last Admin: 12/19/20 08:40 Dose: Not Given Documented by: Simethicone (Simethicone Chew 80 Mg Tablet) 80 mg PO TID PRN PRN Reason: Gas Last Admin: 12/15/20 16:08 Dose: 80 mg Documented by: Sodium Chloride (Sodium Chloride Flush 0.9% 10 Ml Syringe) 10 ml IVP PRN PRN PRN Reason: NEEDED PER PROVIDER ORDERS Last Admin: 12/14/20 16:37 Dose: 10 ml Documented by: Sodium Chloride (Sodium Chloride Flush 0.9% 10 Ml Syringe) 10 ml IVP 0100,0900,1700 [facility] Last Admin: 12/19/20 08:21 Dose: 10 ml Documented by: Tramadol HCl (Tramadol 50 Mg Tablet) 25 mg PO Q4HR PRN PRN Reason: PAIN Last Admin: 12/18/20 11:00 Dose: 25 mg Documented by: No Known Home Medications 12/14/20 Objective - Vital Signs/Intake & Output Reviewed Vital Signs: Yes Vital Signs: Vital Signs x48h Temp Pulse Resp BP Pulse Ox 12/19/20 07:59 37.0 C 78 18 98/57 L 97 12/19/20 01:45 37.4 C 89 17 94/51 L 95 Intake & Output: Intake & Output 12/16/20 12/17/20 12/18/20 12/19/20 23:59 23:59 23:59 23:59 Intake Total 2826.034 2683.333 3030.000 1039.667 Output Total 600 650 580 550 Balance 2226.034 2033.333 2450.000 489.667 - Objective General Appearance: positive: No acute distress, Alert Eyes Bilateral: positive: Normal inspection, Conjunctivae nml ENT: positive: ENT inspection nml Neck: positive: Nml inspection Respiratory: positive: No respiratory distress. negative: Wheezes, Rales Cardiovascular: positive: Regular rate & rhythm, No murmur. negative: Tachycardia Abdomen: positive: Nml bowel sounds, No distention, Tenderness (Diffuse tenderness throughout predominantly in the lower quadrants.). negative: Guarding, Rebound Skin: positive: Warm, Dry Extremities: positive: No pedal edema - Lab Results Fish Bones: 12/19/20 06:58 12/19/20 06:58 Other Labs: Lab Results x24hrs 12/19/20 12/19/20 12/13/20 Range/Units 06:58 06:58 21:20 WBC 4.7 L (4.8-10.8) x10^3/uL RBC 2.68 L (4.20-5.40) 10^6/uL Hgb 8.8 L (12.0-16.0) g/dL Hct 26.0 L (37.0-47.0) % MCV 97.0 (81.0-99.0) fL MCH 32.8 H (27.0-31.0) pg MCHC 33.8 (32.0-36.0) g/dL RDW 17.6 H (12.0-15.0) % Plt Count 195 (130-450) 10^3/uL MPV 9.0 (7.9-10.8) fL Neut # (Auto) 3.1 (1.5-6.6) 10^3/uL Lymph # (Auto) 0.6 L (1.5-3.5) 10^3/uL [place] # (Auto) 0.8 (0.0-1.0) 10^3/uL Eos # (Auto) 0.2 (0.0-0.7) 10^3/uL Baso # (Auto) 0.1 (0.0-0.1) 10^3/uL Absolute Nucleated RBC 0.00 x10^3/uL Nucleated RBC % 0.0 /100WBC Manual Slide Review Indicated Platelet Morphology RARE GIANT PLATELETS (NORMAL) Sodium 133 L (135-145) mmol/L Potassium 4.2 (3.5-5.0) mmol/L Chloride 100 L (101-111) mmol/L Carbon Dioxide 24 (21-32) mmol/L Anion Gap 9.0 (6-13) BUN 5 L (6-20) mg/dL Creatinine 0.7 (0.4-1.0) mg/dL Estimated GFR (MDRD) 91 (>89) Glucose 96 (70-100) mg/dL Calcium 7.6 L (8.5-10.3) mg/dL Magnesium 1.9 (1.7-2.8) mg/dL Ref Lab Test Result REPORT ABX Reporting Has patient been on IV antibiotics over the past 48 hours?: No Sepsis Event Note (H) - Evaluation Current Stage of Sepsis: Sepsis Possible source of Sepsis: positive: GI tract/intra-abdominal - Sepsis Criteria Sepsis Criteria: Recorded Temperature greater than 38.3C or Less than 36C, Recorded Heart Rate greater than 90 bpm, WBC count greater than 10% bands, WBC count greater than 12,000 or less than 4000 Assessment/Plan - Problem List (1) Enterocolitis Impression: Was present on admission and evident on CT of the abdomen and pelvis. This is believed to be secondary to chemotherapy. Stool cultures have been negative to date including C. difficile. She was initially treated with cefepime and Flagyl IV and transition to Unasyn IV and has not been off of antibiotics for more than 24 hours. She remains afebrile. Unfortunately, she did have 2 further episodes of diarrhea today as well as an episode of emesis. Although I do expect her to have diarrhea, I am concerned with the emesis as she was quite dehydrated on admission and if she continues to have emesis, she is at risk for dehydration when discharge and a risk for readmission. For that reason, we will observe for 1 more night. We will continue to hold off antibiotics. Continue with a diet as tolerated. Zofran as needed for nausea. Will use Lomotil and Imodium as needed for diarrhea. Continue with Bentyl for her abdominal spasms. If there is no improvement over next 24 hours then I will reach out to her oncologist. (2) Leukopenia Impression: White count has been slowly increasing although she remains leukopenic. She had a significant amount of bands present on admission which have since resolved. Her leukopenia is likely due to her chemotherapy. We will continue to monitor. (3) Anemia Impression: This is believed to be secondary to chemotherapy. Her hemoglobin has been stable without evidence of bleeding. We will continue to monitor. (4) Breast cancer Impression: She is currently on capecitabine. Her oncologist is Dr[facility]. We will speak with her if the patient does not improve over next 24 horus. (5) Hypocalcemia Impression: This has resolved. (6) Hypokalemia Impression: This was likely secondary to GI losses and has resolved..
[2020-12-19] MEDS: FAMOTIDINE 20 MG TABLET PO SCH ×2 (11:54→20:53)
[2020-12-19] MEDS: SODIUM CHLORIDE FLUSH 0.9% 10 ML SYRINGE IVP PRN ×2 (14:20→20:54)
[2020-12-20] MEDS: SIMETHICONE CHEW 80 MG TABLET PO PRN ×3 (01:26→20:00)
[2020-12-20] MEDS: traMADol 50 MG TABLET PO PRN ×2 (01:26→20:08)
[2020-12-20] MEDS ORDERED: ONDANSETRON ODT 4 MG TABLET TL PRN (01:35)
[2020-12-20 05:38] LABS: BASOPHILS # (AUTO) 0.1 10^3/uL (0.0-0.1); BASOPHILS % (AUTO) 1.4 %; EOSINOPHILS # (AUTO) 0.1 10^3/uL (0.0-0.7); EOSINOPHILS % (AUTO) 2.8 %; HGB - HEMOGLOBIN 8.8 g/dL (12.0-16.0); LYMPHOCYTES # (AUTO) 0.7 10^3/uL (1.5-3.5); LYMPHOCYTES % (AUTO) 15.5 %; MEAN CORPUSCULAR HEMOGLOBIN 32.5 pg (27.0-31.0); MEAN CORPUSCULAR HGB CONC 33.3 g/dL (32.0-36.0); MEAN CORPUSCULAR VOLUME 97.4 fL (81.0-99.0); MEAN PLATELET VOLUME 9.4 fL (7.9-10.8); MONOCYTES # (AUTO) 0.7 10^3/uL (0.0-1.0); MONOCYTES % (AUTO) 16.4 %; NEUTROPHILS # (AUTO) 2.7 10^3/uL (1.5-6.6); NEUTROPHILS % (AUTO) 63.2 %; PLT - PLATELET COUNT 214 10^3/uL (130-450); RED BLOOD COUNT 2.71 10^6/uL (4.20-5.40); RED CELL DISTRIBUTION WIDTH 17.2 % (12.0-15.0); WHITE BLOOD COUNT 4.3 x10^3/uL (4.8-10.8)
[2020-12-20] MEDS: DIPHENOX/ATROPINE 2.5/0.025 MG TABLET PO SCH ×3 (06:08→21:31)
[2020-12-20] MEDS: DICYCLOMINE 10 MG CAPSULE PO SCH ×3 (06:08→21:31)
[2020-12-20 06:09] LABS: BUN - BLOOD UREA NITROGEN < 5 mg/dL (6-20); CALCIUM 7.7 mg/dL (8.5-10.3); CARBON DIOXIDE - CO2 25 mmol/L (21-32); CHLORIDE 100 mmol/L (101-111); CREATININE 0.7 mg/dL (0.4-1.0); GLUCOSE 104 mg/dL (70-100); MAGNESIUM 1.8 mg/dL (1.7-2.8); PHOSPHORUS 3.5 mg/dL (2.5-4.6)
[2020-12-20] MEDS: PANTOPRAZOLE 40 MG TABLET PO SCH (06:09)
[2020-12-20] MEDS: PSYLLIUM PACKET PO SCH ×2 (08:21→21:32)
[2020-12-20] MEDS: ENOXAPARIN 40 MG/0.4 ML SYRINGE SUBQ SCH (08:25)
[2020-12-20] MEDS: SODIUM CHLORIDE FLUSH 0.9% 10 ML SYRINGE IVP SCH ×2 (08:28→16:09)
[2020-12-20] MEDS: FAMOTIDINE 20 MG TABLET PO SCH ×2 (14:32→21:32)
[2020-12-20] MEDS: ZINC SULFATE 220 MG CAPSULE PO SCH (16:09)
--- NOTE | 2020-12-20 18:52 | PROVIDER PROGRESS NOTE ---
Subjective - Prog Note Date Prog Note Date: 12/20/20 - Subjective Subjective: Still feels nauseous but no vomiting today. She is able to eat her breakfast although it was a small amount. She still feels hungry. She still has had 3-4 episodes of diarrhea a day with a large amount of volume. She is concerned about going home and becoming dehydrated again. Current Medications - Current Medications Current Medications: Active Medications Acetaminophen (Acetaminophen 325 Mg Tablet) 650 mg PO Q4HR PRN PRN Reason: Pain or Fever > 38C (100.4F) Last Admin: 12/18/20 10:58 Dose: 650 mg Documented by: Al Hydroxide/Mg Hydroxide (Mag Hydrox/Al Hydrox/Simeth 30 Ml Udc) 30 ml PO Q4HR PRN PRN Reason: INDIGESTION Last Admin: 12/17/20 14:19 Dose: 15 ml Documented by: Calcium Carbonate/Glycine (Calcium Carbonate Chew 500 Mg Tablet) 500 mg PO Q2H PRN PRN Reason: Heartburn Last Admin: 12/15/20 08:33 Dose: 1,000 mg Documented by: Dicyclomine HCl (Dicyclomine 10 Mg Capsule) 10 mg PO TID PENDING SALE TO [facility] Last Admin: 12/20/20 14:32 Dose: 10 mg Documented by: Diphenhydramine HCl (Diphenhydramine 25 Mg Capsule) 25 mg PO QPM PRN PRN Reason: Insomnia Diphenoxylate HCl/Atropine (Diphenox/Atropine 2.5/0.025 Mg Tablet) 1 tab PO TID PENDING SALE TO [facility] Last Admin: 12/20/20 14:32 Dose: 1 tab Documented by: Enoxaparin Sodium (Enoxaparin 40 Mg/0.4 Ml Syringe) 40 mg SUBQ DAILY PENDING SALE TO [facility] Last Admin: 12/20/20 08:25 Dose: 40 mg Documented by: Famotidine (Famotidine 20 Mg Tablet) 20 mg PO BID PENDING SALE TO [facility] Last Admin: 12/20/20 14:32 Dose: 20 mg Documented by: Loperamide HCl (Loperamide 2 Mg Capsule) 2 mg PO Q2H PRN PRN Reason: Diarrhea Last Admin: 12/17/20 09:13 Dose: 2 mg Documented by: Multi-Ingredient Ointment (Emollient Cream 57 Gm Tube) 1 applic TOP BID PRN PRN Reason: Dry Skin Ondansetron HCl (Ondansetron 4 Mg/2 Ml Vial) 4 mg IVP Q4HR PRN PRN Reason: Nausea / Vomiting Last Admin: 12/19/20 20:53 Dose: 4 mg Documented by: Ondansetron HCl (Ondansetron Odt 4 Mg Tablet) 4 mg TL Q4HR PRN PRN Reason: Nausea / Vomiting Pantoprazole Sodium (Pantoprazole 40 Mg Tablet) 40 mg PO QDAC PENDING SALE TO [facility] Last Admin: 12/20/20 06:09 Dose: 40 mg Documented by: Promethazine HCl (Promethazine 25 Mg Tablet) 25 mg PO Q6HR PRN PRN Reason: Nausea / Vomiting Last Admin: 12/19/20 23:56 Dose: 25 mg Documented by: Psyllium Hydrophilic Mucilloid (Psyllium Packet) 1 packet PO BID PENDING SALE TO [facility] Last Admin: 12/20/20 08:21 Dose: Not Given Documented by: Simethicone (Simethicone Chew 80 Mg Tablet) 80 mg PO TID PRN PRN Reason: Gas Last Admin: 12/20/20 12:11 Dose: 80 mg Documented by: Sodium Chloride (Sodium Chloride Flush 0.9% 10 Ml Syringe) 10 ml IVP PRN PRN PRN Reason: NEEDED PER PROVIDER ORDERS Last Admin: 12/19/20 20:54 Dose: 10 ml Documented by: Sodium Chloride (Sodium Chloride Flush 0.9% 10 Ml Syringe) 10 ml IVP 0100,0900,1700 PENDING SALE TO [facility] Last Admin: 12/20/20 16:09 Dose: 10 ml Documented by: Tramadol HCl (Tramadol 50 Mg Tablet) 25 mg PO Q4HR PRN PRN Reason: PAIN Last Admin: 12/20/20 01:26 Dose: 25 mg Documented by: Zinc Sulfate (Zinc Sulfate 220 Mg Capsule) 220 mg PO DAILY PENDING SALE TO [facility] Stop: 12/27/20 10:00 Last Admin: 12/20/20 16:09 Dose: 220 mg Documented by: No Known Home Medications 12/14/20 Objective - Vital Signs/Intake & Output Reviewed Vital Signs: Yes Vital Signs: Vital Signs x48h Temp Pulse Resp BP Pulse Ox 12/20/20 16:20 37.3 C 92 18 91/52 L 96 Intake & Output: Intake & Output 02/14/21 02/15/21 02/16/21 02/17/21 23:59 23:59 23:59 23:59 Intake Total 2683.333 3030.000 1760.667 540 Output Total 577 731 9812 2340 Balance 3.333 2450.000 85.667 -1800 - Objective General Appearance: positive: No acute distress, Alert Eyes Bilateral: positive: Normal inspection, Conjunctivae nml ENT: positive: ENT inspection nml Neck: positive: Nml inspection Respiratory: positive: No respiratory distress. negative: Wheezes, Rales Cardiovascular: positive: Regular rate & rhythm. negative: Tachycardia, Systolic murmur Abdomen: positive: Non-tender, No distention. negative: Tenderness Skin: positive: Warm, Dry Extremities: positive: Pedal edema (Trace edema.) Neurologic/Psychiatric: positive: Oriented x3. negative: Disoriented to person, Disoriented to place, Disoriented to time - Lab Results Fish Bones: 12/20/20 04:23 12/20/20 04:23 Other Labs: Lab Results x24hrs 12/20/20 12/20/20 Range/Units 04:23 04:23 WBC 4.3 L (4.8-10.8) x10^3/uL RBC 2.71 L (4.20-5.40) 10^6/uL Hgb 8.8 L (12.0-16.0) g/dL Hct 26.4 L (37.0-47.0) % MCV 97.4 (81.0-99.0) fL MCH 32.5 H (27.0-31.0) pg MCHC 33.3 (32.0-36.0) g/dL RDW 17.2 H (12.0-15.0) % Plt Count 214 (130-450) 10^3/uL MPV 9.4 (7.9-10.8) fL Neut # (Auto) 2.7 (1.5-6.6) 10^3/uL Lymph # (Auto) 0.7 L (1.5-3.5) 10^3/uL [place] # (Auto) 0.7 (0.0-1.0) 10^3/uL Eos # (Auto) 0.1 (0.0-0.7) 10^3/uL Baso # (Auto) 0.1 (0.0-0.1) 10^3/uL Absolute Nucleated RBC 0.00 x10^3/uL Nucleated RBC % 0.0 /100WBC Sodium 135 (135-145) mmol/L Potassium 3.5 (3.5-5.0) mmol/L Chloride 100 L (101-111) mmol/L Carbon Dioxide 25 (21-32) mmol/L Anion Gap 10.0 (6-13) BUN < 5 L (6-20) mg/dL Creatinine 0.7 (0.4-1.0) mg/dL Estimated GFR (MDRD) 91 (>89) Glucose 104 H (70-100) mg/dL Calcium 7.7 L (8.5-10.3) mg/dL Phosphorus 3.5 (2.5-4.6) mg/dL Magnesium 1.8 (1.7-2.8) mg/dL ABX Reporting Has patient been on IV antibiotics over the past 48 hours?: No Sepsis Event Note (H) - Evaluation Current Stage of Sepsis: Sepsis Possible source of Sepsis: positive: GI tract/intra-abdominal - Sepsis Criteria Sepsis Criteria: Recorded Temperature greater than 38.3C or Less than 36C, Recorded Heart Rate greater than 90 bpm, WBC count greater than 10% bands, WBC count greater than 12,000 or less than 4000 Assessment/Plan - Problem List (1) Enterocolitis Impression: Although she still has diarrhea, she is improving. Stool cultures of all been negative to date and she has not been off of antibiotics for more than 48 hours. I did speak with her oncologist today, Dr. Keri Thakur, to discuss the patient's clinical improvement. Agrees with supportive care given the stool cultures have been negative and believes it will just take time for the diarrhea to improve given his like related to the chemotherapy. I discussed with the patient today and the plan will be to ensure her electrolytes remained stable off of IV fluids which have been discontinued and if her electrolytes are stable tomorrow and her diarrhea continues to improve then she will likely be discharged home tomorrow and follow-up with her oncologist. The patient is agreeable to this. Continue with Bentyl, Imodium, Lomotil for symptomatic relief. (2) Leukopenia Impression: Stable and likely related to her chemotherapy. (3) Anemia Impression: Hemoglobin has been stable without evidence of bleeding. This is likely related to her chemotherapy and malignancy. (4) Breast cancer Impression: She will continue outpatient follow-up with her oncologist next week on discharge. (5) Hypocalcemia Impression: Resolved. (6) Hypokalemia Impression: Resolved.
[2020-12-21] MEDS: SODIUM CHLORIDE FLUSH 0.9% 10 ML SYRINGE IVP SCH ×2 (00:03→08:46)
[2020-12-21 05:40] LABS: BASOPHILS % (AUTO) 0.9 %; EOSINOPHILS # (AUTO) 0.1 10^3/uL (0.0-0.7); EOSINOPHILS % (AUTO) 2.3 %; HGB - HEMOGLOBIN 9.1 g/dL (12.0-16.0); LYMPHOCYTES # (AUTO) 0.8 10^3/uL (1.5-3.5); LYMPHOCYTES % (AUTO) 17.7 %; MEAN CORPUSCULAR HEMOGLOBIN 32.5 pg (27.0-31.0); MEAN CORPUSCULAR VOLUME 98.6 fL (81.0-99.0); MEAN PLATELET VOLUME 9.3 fL (7.9-10.8); MONOCYTES # (AUTO) 0.8 10^3/uL (0.0-1.0); MONOCYTES % (AUTO) 17.7 %; NEUTROPHILS # (AUTO) 2.7 10^3/uL (1.5-6.6); NEUTROPHILS % (AUTO) 60.7 %; PLT - PLATELET COUNT 226 10^3/uL (130-450); RED CELL DISTRIBUTION WIDTH 17.6 % (12.0-15.0); WHITE BLOOD COUNT 4.4 x10^3/uL (4.8-10.8)
[2020-12-21 06:14] LABS: CALCIUM 7.8 mg/dL (8.5-10.3); CREATININE 0.6 mg/dL (0.4-1.0)
[2020-12-21] MEDS: PANTOPRAZOLE 40 MG TABLET PO SCH (06:31)
[2020-12-21] MEDS: DIPHENOX/ATROPINE 2.5/0.025 MG TABLET PO SCH (06:31)
[2020-12-21] MEDS: DICYCLOMINE 10 MG CAPSULE PO SCH (06:32)
[2020-12-21] MEDS: traMADol 50 MG TABLET PO PRN (06:36)
[2020-12-21] MEDS: SIMETHICONE CHEW 80 MG TABLET PO PRN (06:37)
--- NOTE | 2020-12-21 07:28 | Discharge Plan ---
Discharge Plan Problem Reviewed?: Yes Disposition: Home, Self Care Condition: Stable Prescriptions: traMADol [Ultram] 25 mg PO Q4HR PRN #10 tab PRN Reason: Pain Ondansetron Odt [Zofran Odt] 4 mg TL Q4HR PRN #15 tab PRN Reason: Nausea / Vomiting Dicyclomine [Bentyl] 10 mg PO TID PRN #15 cap PRN Reason: Abdominal Pain Loperamide [Imodium] 2 mg PO Q2H PRN #60 cap PRN Reason: Diarrhea Simethicone Oral Susp [Simethicone] 80 mg PO Q6H PRN #1 bottle PRN Reason: Gas Diet: Regular Activity Restrictions: Activity as Tolerated Instruction Topics: Tramadol tablets, Simethicone chewable tablets, Loperamide tablets or capsules, Dicyclomine tablets or capsules, Oncology Control Diarrhea Health Concerns: You were seen in the hospital because of severe diarrhea that caused you to be quite dehydrated. You had low potassium and low calcium because of this. You are treated with IV fluids with improvement. Your diarrhea has been treated with Imodium and although you are still having diarrhea, this is improved. This is likely a side effect from your chemotherapy. We checked your stool for infection and this has been negative. Plan of Treatment: Please continue to take Imodium as needed for the diarrhea. You may take 4 mg for the initial dose followed by 2 mg every 4 hours or after every loose stool. Although the package states you should not exceed 16 mg in a 24-hour period, it is okay to not follow these instructions as Imodium is excreted in the stool and there is very low risk of overdose given the diarrhea. As your diarrhea improves, you can limit the amount of Imodium you are taking. You may take Zofran as needed for nausea. I have also prescribed you Pepcid for heartburn. It is recommended that you drink plenty of fluids at home. Broth and Gatorade are both good options. "BRAT" diet can also be of use in patients who have diarrhea. Care Goals: The goal is to control your diarrhea so that you can continue treatment for your breast cancer. Assessment: Patient expressed understanding of the treatment plan. Additional Instructions or Follow Up instructions: Please follow-up with your oncologist next week as scheduled. Please return to the emergency department if you develop worsening diarrhea, abdominal pain, fevers, chills. No Smoking: If you smoke, Please STOP! Call for help. Follow-up with: Provider,Other [Primary Care Provider] -
--- NOTE | 2020-12-21 07:29 | DISCHARGE SUMMARY ---
Discharge Summary Admit Date: 12/13/20 Discharge Date: 12/21/20 Discharging Provider: Dwaine Escobedo Primary Care Provider: PCP is in [place] Code Status: Attempt Resuscitation Condition at Discharge: Stable Discharge Disposition: 01 Home, Self Care - DIAGNOSES Admission Diagnoses: Sepsis Chemotherapy-induced diarrhea Intravascular volume depletion Metabolic acidosis with normal anion gap and bicarbonate losses Hypocalcemia Anemia Cytopenia Discharge Diagnoses with Status of Each Condition: Enterocolitis - improved. Leukopenia - stable. Anemia - stable. Breast cancer - stable. Hypocalcemia - resolved. Hypokalemia - resolved. - HPI History of Present Illness: H&P per KULDEEP Meyers on 12/13/20: 45 yo female, dual citizen of [place] and [place], works at [employer], who has unfortunate diagnosis of triple negative breast CA last year, s/p neoadjuvant TAxol, then R mastectomy with reconstruction R breast and most recently started capcitabine. She is on her 2nd cycle, just completed 2nd cycle Friday. On Friday she developed watery diarrhea ( known side effect of capcita bine). She did have diarrhea w/ the first course, but self limited and not completely watery. This time its "constant" and watery. No blood or mucus in stool Has barely eaten since the weekend, taking some liquids, definately feels "dry". 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 WBC 2.5 wit 38% bands. Not taking colony stimulating factor post chemo. Labs also notable for LASHAY C02 18 On presentation she does have a fever 39.1, and tachycardia in the 130's in ED. REceived 2 L NS in ED and started Cefepime Re: other possible contributers to fever, No indwelling port or catheter, no other hadrdward, No SOB, cough, sore throat, odynophagia, no dysuria or other urinay symptomno confusion Does have palmar and soles of feet skin thickening but no open sores. In the ED blood cultures pending, stool sent for fecal pathogens and Cdif, CT abdomen just done - CONSULTS | PROCEDURES Consultations: General Surgery - HOSPITAL COURSE Hospital Course: The patient was admitted for suspected sepsis secondary to enterocolitis. She presented with fever and marked bandemia. Her initial lactic acid was normal. She also had significant hypocalcemia and hypokalemia on admission. She was treated with cefepime and Flagyl IV given CT suggested enterocolitis and the fever on admission. She responded well to IV fluids and her hypocalcemia and hypokalemia resolved with replacement. Her stool cultures came back negative as well as C. difficile. She was started on Imodium given it was felt that the diarrhea was likely related to her capecitabine. Her diet was slowly advanced from clears to regular diet. Unfortunately, she continued to have a significant amount of diarrhea as well as nausea and vomiting. Her antibiotics were discontinued after 4 days given low suspicion for infection. She was evaluated by general surgery given the colitis initially and supportive care was recommended. Her hospital course was prolonged due to her ongoing diarrhea and concern for dehydration if she were to be discharged given her oral intake was limited due to nausea and vomiting. This resolved over the next few days with Zofran and the use of Lomotil as well as Imodium. Her IV fluids were discontinued and she was monitored for over 24 hours with stable electrolytes. Her nausea and vomiting has resolved and she is able to take p.o. consistently. She is still having diarrhea although this has improved and is now having about 3-4 bowel movements a day. She is discharged home in a stable condition. I have prescribed her Imodium to take for her diarrhea as well as tramadol for her occasional abdominal pain/cramping. I also provided her with a prescription for simethicone and Bentyl as this provided her with relief. She will be following up with her oncologist the day after discharge in [facility]. - ALLERGIES Allergies/Adverse Reactions: Allergies Allergy/AdvReac Type Severity Reaction Status Date / Time erythromycin base Allergy Anaphylaxis Verified 12/13/20 14:45 fentanyl Allergy Anaphylaxis Verified 12/13/20 14:45 Latex, Natural Rubber AdvReac Itching Verified 12/13/20 14:45 - MEDICATIONS Home Medications: Ambulatory Orders Medication Instructions Recorded Confirmed Dicyclomine [Bentyl] 10 mg PO TID PRN #15 cap 12/21/20 Loperamide [Imodium] 2 mg PO Q2H PRN #60 cap 12/21/20 Ondansetron Odt [Zofran Odt] 4 mg TL Q4HR PRN #15 tab 02/18/21 Simethicone Oral Susp [Simethicone] 80 mg PO Q6H PRN #1 bottle 12/21/20 traMADol [Ultram] 25 mg PO Q4HR PRN #10 tab 12/21/20 - PHYSICAL EXAM AT DISCHARGE General Appearance: positive: No acute distress, Alert Eyes Bilateral: positive: Normal inspection, Conjunctivae nml ENT: positive: ENT inspection nml Neck: positive: Nml inspection Respiratory: positive: No respiratory distress. negative: Wheezes, Rales Cardiovascular: positive: Regular rate & rhythm. negative: Tachycardia, Systolic murmur Abdomen: positive: Nml bowel sounds, No distention, Tenderness (Mild diffuse tenderness.). negative: Non-tender, Guarding, Rebound Skin: positive: Warm, Dry Extremities: positive: No pedal edema Neurologic/Psychiatric: positive: Motor nml Physical Exam Other/Comments: Vital Signs - 24 hr 12/20/20 12/21/20 12/21/20 16:20 04:55 07:45 Temperature 37.3 C 36.7 C 36.8 C Heart Rate [ 92 94 78 Brachial] Respiratory 18 18 14 Rate Blood Pressure 91/52 L 97/56 L 97/53 L [Left Brachial artery] O2 Saturation 96 96 97 Oxygen O2 Source Room air - LABS Result Diagrams: 12/21/20 04:44 12/21/20 04:44 - DIAGNOSTIC IMAGING Diagnostic Imaging Results: Final report reviewed - SEPSIS Current Stage of Sepsis: Resolved Possible source of Sepsis: GI tract/intra-abdominal Sepsis Criteria: Recorded Temperature greater than 38.3C or Less than 36C, Recorded Heart Rate greater than 90 bpm, WBC count greater than 10% bands, WBC count greater than 12,000 or less than 4000 - FOLLOW UP Follow Up: She will be following up with her oncologist tomorrow in [facility]. - TIME SPENT Time Spent in Discharge (Minutes): 34
[2020-12-21 07:46] VITALS: BP 97/53
[2020-12-21] MEDS: PSYLLIUM PACKET PO SCH (08:45)
[2020-12-21] MEDS: ZINC SULFATE 220 MG CAPSULE PO SCH (08:45)
[2020-12-21] MEDS: ENOXAPARIN 40 MG/0.4 ML SYRINGE SUBQ SCH (08:46)
[2020-12-21] MEDS: FAMOTIDINE 20 MG TABLET PO SCH (08:46)
== END 2020-12-21 10:55 | disposition home or self-care (01) | DRG 871 ==
LOC: EDUNIT# → ED 11:29 → MS2 17:26
PROVIDERS: ADMIT Nurse Practitioner; ATTEND Internal Medicine
DX: A41.9 Sepsis, unspecified organism (principal); D61.810 Antineoplastic chemotherapy induced pancytopenia; A09 Infectious gastroenteritis and colitis, unspecified; K52.1 Toxic gastroenteritis and colitis; E87.2 Acidosis; E87.1 Hypo-osmolality and hyponatremia; R11.2 Nausea with vomiting, unspecified; L27.1 Localized skin eruption due to drugs and medicaments taken internally; T45.1X5A Adverse effect of antineoplastic and immunosuppressive drugs, initial encounter; E86.0 Dehydration; E83.51 Hypocalcemia; E87.6 Hypokalemia; E83.39 Other disorders of phosphorus metabolism; C50.911 Malignant neoplasm of unspecified site of right female breast; Z17.1 Estrogen receptor negative status [ER-]; K21.9 Gastro-esophageal reflux disease without esophagitis; G89.29 Other chronic pain; M54.5 Low back pain; R93.89 Abnormal findings on diagnostic imaging of other specified body structures; T83.32XA Displacement of intrauterine contraceptive device, initial encounter; Z20.822 Contact with and (suspected) exposure to COVID-19; Z79.899 Other long term (current) drug therapy; Z90.11 Acquired absence of right breast and nipple; Z80.3 Family history of malignant neoplasm of breast
CPT/HCPCS: 0202U; 36415; 71045; 74177; 80048; 80053; 81003; 81025; 81599; 82330; 83605; 83690; 83735; 84100; 84132; 85025; 85027; 87040; 87493; 96365; 96375; 99284; 99285; A9270; J1170; J1650; Q0162; Q0169; Q9967; 81001; 87045; 87046; 87086

== ENCOUNTER 2023-09-05 08:00 | Outpatient (CLI) | payer OTHER ==
[2023-09-05 16:15] LABS: CHLAMYDIA TRACHOMATIS DNA NEGATIVE (NEGATIVE); NEISSERIA GONORRHOEAE DNA NEGATIVE (NEGATIVE)
[2023-09-05 17:16] LABS: BACTERIAL VAGINOSIS DNA NEGATIVE (NEGATIVE); CANDIDA GLABRATA DNA NEGATIVE (NEGATIVE); CANDIDA GROUP DNA NEGATIVE (NEGATIVE); CANDIDA KRUSEI DNA NEGATIVE (NEGATIVE); TRICHOMONAS VAGINALIS DNA NEGATIVE (NEGATIVE)
== END 2023-09-05 23:59 | disposition home or self-care (01) ==
LOC: LAB 08:00
PROVIDERS: ATTEND Registered Nurse
DX: N89.8 Other specified noninflammatory disorders of vagina (principal); R35.89 Other polyuria; L29.2 Pruritus vulvae; R10.2 Pelvic and perineal pain
CPT/HCPCS: 81514; 87077; 87086; 87491; 87591; 87661

== ENCOUNTER 2024-05-22 12:47 | Emergency (ER) | payer OTHER ==
--- NOTE | 2024-05-22 13:52 | ED Physician Documentation ---
History of Present Illness - Stated complaint Stated Complaint: MIGRAINE, HEAD/BACK PX - Chief complaint Chief Complaint: Neuro - History obtained from History obtained from: Patient, Family, Friend - History of Present Illness Timing: How many weeks ago (2) Pain level max: 4 Pain level now: 4 - Additonal information Additional information: Patient is a 48-year-old female presenting to the emergency department with persistent migraines rating from the back of her head to the front of her head. Patient has past medical history remarkable for breast cancer diagnosed back in 2019 she went through chemotherapy mastectomy and is in remission at this time. She last followed up with her oncologist 6 months ago. She called her PCPs office about a week ago and was started on nortriptyline for persistent headaches she feels it makes her feel very sleepy but does not help with the headache pain. She notes persistent episodes of nausea feeling dizzy but no episodes of vomiting fevers or vision changes. She has been taking ibuprofen as well for symptoms without significant relief. She denies any history of migraines and states pain at worst is 10 out of 10. PD PAST MEDICAL HISTORY - Past Medical History Cardiovascular: None Respiratory: None Neuro: None Endocrine/Autoimmune: None GI: None CREW BOSS: Breast cancer : None HEENT: None Psych: None Musculoskeletal: Other - Past Surgical History Past Surgical History: Yes /CREW BOSS: Mastectomy - Present Medications Home Medications: Ambulatory Orders Medication Instructions Recorded Confirmed *Simethicone Oral Susp 80 mg PO Q6H PRN #1 bottle 12/21/20 [Simethicone] Dicyclomine [Bentyl] 10 mg PO TID PRN #15 cap 12/21/20 Loperamide [Imodium] 2 mg PO Q2H PRN #60 cap 12/21/20 Ondansetron Odt [Zofran Odt] 4 mg TL Q4HR PRN #15 tab 12/21/20 traMADol [Ultram] 25 mg PO Q4HR PRN #10 tab 12/21/20 - Allergies Allergies/Adverse Reactions: Allergies Allergy/AdvReac Type Severity Reaction Status Date / Time erythromycin base Allergy Anaphylaxis Verified 05/22/24 13:01 fentanyl Allergy Anaphylaxis Verified 05/22/24 13:01 Latex, Natural Rubber AdvReac Itching Verified 05/22/24 13:01 - Social History Does the pt smoke?: No Smoking Status: Never smoker Does the pt drink ETOH?: No Does the pt have substance abuse?: No - Immunizations Immunizations are current?: Yes PD ED PE NORMAL - Vitals Vital signs reviewed: Yes - General General: Alert and oriented X 3 - HEENT HEENT: Atraumatic, PERRL, EOMI, Ears normal, Moist mucous membranes, Pharynx benign, Dentition benign - Neck Neck: Supple, no meningeal sign, No JVD - Cardiac Cardiac: RRR, No murmur, No gallop, No rub - Respiratory Respiratory: No respiratory distress, Clear bilaterally - Female Female : Deferred - Derm Derm: Normal color - Extremities Extremities: No deformity, No edema - Neuro Neuro: Alert and oriented X 3, 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 Sensation intact in upper and lower extremities. [id number] test intact. Negative Romberg sign.) Verbal: Oriented Results - Vitals Vitals: Vital Signs - 24 hr 05/22/24 05/22/24 05/22/24 13:01 16:00 19:30 Temperature 36.2 C L Heart Rate 89 96 85 Respiratory 16 16 17 Rate Blood Pressure 144/92 H 134/87 H 127/79 O2 Saturation 100 100 99 05/22/24 19:47 Temperature Heart Rate 91 Respiratory 16 Rate Blood Pressure 127/79 O2 Saturation 99 Oxygen O2 Source Room air - Labs Labs: Laboratory Tests 05/22/24 05/22/24 13:50 13:50 WBC 8.2 RBC 5.02 Hgb 14.3 Hct 45.2 MCV 90.0 MCH 28.5 MCHC 31.6 L RDW 13.0 Plt Count 282 MPV 8.1 Neut # (Auto) 6.3 Lymph # (Auto) 1.4 L [place] # (Auto) 0.5 Eos # (Auto) 0.0 Baso # (Auto) 0.1 Absolute Nucleated RBC 0.00 Nucleated RBC % 0.0 Sodium 137 Potassium 3.9 Chloride 100 L Carbon Dioxide 28 Anion Gap 9.0 BUN 16 Creatinine 0.8 Estimated GFR (MDRD) 77 L Glucose 92 Calcium 10.3 Magnesium 1.6 L Total Bilirubin 0.4 AST 26 ALT 50 Alkaline Phosphatase 90 Total Protein 8.7 Albumin 4.8 Globulin 3.9 Albumin/Globulin Ratio 1.2 PD Medical Decision Making - ED course Complexity details: reviewed old records, reviewed results, re-evaluated patient, considered differential, d/w patient ED course: Patient is a 48-year-old female presenting to the emergency department with persistent headaches have been going on for the past 2 weeks since 05/07. Patient is taking nortriptyline and ibuprofen without relief no history of migraines patient does have history of breast cancer currently in remission. No history of metastatic disease. Vitals on arrival are reassuring patient is afebrile nontachycardic normotensive. Physical exam shows normal cardiac and lung sounds no focal neurodeficits she is strength intact sensation intact negative [id number] test and stable gait on ambulation. Basic labs obtained here in emergency department as well as pain medication for migraine treatment including Toradol fluids Reglan and Benadryl to help with symptoms. Labs here in the emergency department are reassuring. 1536: Received call from radiology who reports concerning findings on CT scan of head with right cerebellum and vasogenic edema concerning for metastatic lesions recommending MRI with contrast follow-up imaging. MRI findings are concerning for multiple rim-enhancing masses with surrounding edema and mass effect additionally there is fourth ventricle narrowing secondary to swelling and findings of masses in cerebellum. Discussed case with neurosurgery at where patient has followed with oncology in the past patient was previously following with Dr. Hogue but they have retired and she has a new oncologist she is following up with in August. 1999: Discussed case with neurosurgery Dr. Betsey Murcia who agrees patient will require transfer to another facility. Recommending Decadron every 4 hours 4 mg infusions. She will confirm with her attending prior to patient being transferred over. 2199: Received call from transfer team and patient has been accepted by Dr. Andrea Young neurosurgeon at [facility] for transfer for treatment. 2214: Discussed with patient she is agreeable with being transferred, currently pending a room prior to being transferred. Departure - Departure Forms: PCP List
[2024-05-22 14:14] LABS: BASOPHILS # (AUTO) 0.1 10^3/uL (0.0-0.1); BASOPHILS % (AUTO) 0.9 %; HCT - HEMATOCRIT 45.2 % (37.0-47.0); HGB - HEMOGLOBIN 14.3 g/dL (12.0-16.0); LYMPHOCYTES # (AUTO) 1.4 10^3/uL (1.5-3.5); LYMPHOCYTES % (AUTO) 16.5 %; MEAN CORPUSCULAR HEMOGLOBIN 28.5 pg (27.0-31.0); MEAN CORPUSCULAR HGB CONC 31.6 g/dL (32.0-36.0); MEAN PLATELET VOLUME 8.1 fL (7.9-10.8); MONOCYTES # (AUTO) 0.5 10^3/uL (0.0-1.0); MONOCYTES % (AUTO) 5.5 %; NEUTROPHILS # (AUTO) 6.3 10^3/uL (1.5-6.6); NEUTROPHILS % (AUTO) 76.9 %; PLT - PLATELET COUNT 282 10^3/uL (130-450); RED BLOOD COUNT 5.02 10^6/uL (4.20-5.40); WHITE BLOOD COUNT 8.2 x10^3/uL (4.8-10.8)
[2024-05-22] MEDS: diphenhydrAMINE INJ 50 MG/ML VIAL IVP STA (14:19)
[2024-05-22 14:20] LABS: ALBUMIN 4.8 g/dL (3.2-5.5); ALBUMIN/GLOBULIN RATIO 1.2 (1.0-2.2); BILIRUBIN,TOTAL 0.4 mg/dL (0.2-1.0); CALCIUM 10.3 mg/dL (8.5-10.3); CREATININE 0.8 mg/dL (0.6-1.3); MAGNESIUM 1.6 mg/dL (1.7-2.3); POTASSIUM 3.9 mmol/L (3.5-4.5); TOTAL PROTEIN 8.7 g/dL (6.4-8.9)
[2024-05-22] MEDS: LACTATED RINGERS 1,000 ML IV STA (14:20)
[2024-05-22] MEDS: METOCLOPRAMIDE 10 MG/2 ML VIAL IVP STA (14:20)
[2024-05-22] MEDS: KETOROLAC 30 MG/ML VIAL IVP STA (14:20)
--- NOTE | 2024-05-22 15:36 | CT Report ---
PROCEDURE: Head WO INDICATIONS: severe migraine, hx of cancer in remission TECHNIQUE: Noncontrast 4.5 mm thick angled axial sections acquired from the foramen magnum to the vertex. For r adiation dose reduction, the following was used: automated exposure control, adjustment of mA and/or kV according to patient size. COMPARISON: None. FINDINGS: Image quality: Diagnostic. CSF spaces: Basal cisterns are patent. No extra-axial fluid collections. Ventricles are normal in size and shape. Brain: No midline shift. There is an ill-defined, heterogeneously hypodense lesion within the right cerebellum with associated mass effect and sulcal effacement. There is also ill-defined hypoattenuati on of the posterior right occipital lobe likely representing vasogenic edema. There is also effacemen t of the sulci. No significant midline shift. No acute intracranial hemorrhage. Skull and face: Calv arium and visualized facial bones are intact, without suspicious lesions. Sinuses: Visualized sinuses and mastoids are clear. IMPRESSION: Findings suspicious for intracranial mass of the posterior right occipital as well as the right cereb ellum with associated vasogenic edema. Findings may represent metastatic disease given history of makeda or cancer. Consider further evaluation with contrast-enhanced MRI. Findings discussed with Dr. Denton at 1534 hrs. Reviewed by: Lemuel Armstrong MD on 05/22/2024 3:35 PM PDT Approved by: Lemuel Armstrong MD on 05/22/2024 3:35 PM PDT Station ID: [id number]
[2024-05-22] MEDS ORDERED: GADOTERATE MEGLUMINE 7.5 MMOL/15 ML VIAL ONE (16:12)
[2024-05-22] MEDS: GADOTERATE MEGLUMINE 7.5 MMOL/15 ML VIAL IVP ONE (17:04)
--- NOTE | 2024-05-22 17:16 | MRI Report ---
PROCEDURE: Brain W/WO INDICATIONS: concerning findings on CT head CONTRAST: CLARISCAN 11.8 ML TECHNIQUE: Noncontrast axial T1 spin echo, axial T2 fast spin echo, sagittal and axial FLAIR, coronal T2 fast sp in echo, axial gradient echo, axial diffusion and ADC through the brain. After the administration of contrast, axial and coronal T1 spin echo with fat saturation through the brain. COMPARISON: Correlation is made with the accompanying imaging. FINDINGS: Image quality: Excellent. CSF spaces: Basal cisterns are patent. No extra-axial fluid collections. The lateral ventricles are normal in size and shape. Mass effect can be seen upon the fourth ventricle. Brain: Several rim-enhancing masses are seen, with associated surrounding edema and mass effect. With in the right posterior medial temporal lobe, there is a 15 x 13 mm mass is seen. Within the right cer ebellum, there is a multilobulated mass seen measuring 27 26 mm in greatest axial dimension. Within t he left medial cerebellum, there is an 11 x 8 mm mass seen. No midline shift. There is cerebral volume loss for age. There is periventricular white matter recreational therapist lizeth small vessel ischemic change. The brainstem appears normal. Diffusion-weighted images demonstra te no acute ischemic insults. No chronic ischemic insults. Normal intravascular flow voids are pres ent. Skull and face: Calvarial marrow is normal in signal. Orbits appear normal. Sinuses: Sinuses and mastoids appear clear. IMPRESSION: Multiple rim-enhancing masses can be seen, surrounding edema and mass effect. Metastatic disease is suspected. There is associated narrowing of the fourth ventricle. Reviewed by: Miguel Xiao MD on 05/22/2024 4:15 PM [facility] Approved by: Miguel Xiao MD on 05/22/2024 4:15 PM [facility] Station ID: [id number]
[2024-05-22] MEDS: DEXAMETHASONE 4 MG/ML VIAL IVP ONE ×2 (20:36→20:56)
[2024-05-22] MEDS: DEXAMETHASONE 10 MG/ML VIAL IVP STA (21:03)
[2024-05-23 00:33] VITALS: BP 121/81; O2SAT 97
== END 2024-05-23 00:43 | disposition short-term general hospital (02) ==
LOC: ED 12:47
DX: C79.31 Secondary malignant neoplasm of brain (principal); Z85.3 Personal history of malignant neoplasm of breast; Z79.899 Other long term (current) drug therapy; Z91.040 Latex allergy status
CPT/HCPCS: 36415; 70450; 70553; 80053; 83735; 85025; 96374; 96375; 99284; 99285; J1200; J2765; J7120